=== PATIENT | male | born 1975 | race Caucasian/White ===

== ENCOUNTER 2016-10-03 09:25 | Observation (INO) | payer OTHER ==
[2016-10-03] MEDS ORDERED: Sodium Chloride 0.9% 1,000 ML IV SCH (09:45)
[2016-10-03] MEDS ORDERED: Ondansetron 4 MG/2 ML SDV IVPUSH ONE (09:50)
[2016-10-03] MEDS ORDERED: Pantoprazole 40 MG Vial IVPUSH ONE (09:50)
--- NOTE | 2016-10-03 09:54 | EDM.PDOC ---
ED HPI GENERAL MEDICAL PROBLEM - General Chief Complaint: Gastrointestinal Problem Stated Complaint: COUGHING BLOOD Time Seen by Provider: 10/03/16 09:31 - History of Present Illness INITIAL COMMENTS - FREE TEXT/NARRATIVE: HISTORY AND PHYSICAL: History of present illness: The patient is a 41-year-old male who presents with complaints of 2 days of having abdominal discomfort and having 10 loose stools a day which are "alvarado- colored" and then one day of cough with sputum that is blood-tinged and vomiting. Patient denies any fever runny nose or sore throat and has no chest pain or shortness of breath. Patient initially told triage he was concerned about the coughing but to me mentioned the diarrhea. Patient has no GI history and had an endoscopy and colonoscopy 2-3 years ago which diagnosed him with an ulcer which was treated. Patient also states he has had hemorrhoids in the past and is not sure if the bleeding is from that. Patient denies any rectal pain. He 's had no urinary symptoms and has no abdominal surgeries. Patient follows at [facility] and states he did not call in Tuesday with any of these symptoms. Patient says he's felt dizzy and lightheaded but has not passed out at home. While coming in from triage he was seated on the bed and nursing noted that he seemed to have a brief fainting episode on the bed without any trauma. Please note the patient did not get his influenza shot this year Review of systems: As per history of present illness and below otherwise all systems reviewed and negative. Past medical history: As per history of present illness and as reviewed below otherwise noncontributory. Surgical history: As per history of present illness and as reviewed below otherwise noncontributory. Social history: No reported history of drug or alcohol abuse. Family history: As per history of present illness and as reviewed below otherwise noncontributory. Physical exam: General: Well-developed well-nourished male who is nontoxic and speaking clearly and easily. Vital signs have been reviewed by me. HEENT: Atraumatic, normocephalic, pupils reactive, negative for conjunctival pallor or scleral icterus, mucous membranes moist, throat clear, neck supple, nontender, trachea midline. Lungs: Clear to auscultation, breath sounds equal bilaterally, chest nontender. There is no work of breathing or sensory muscle use Heart: S1S2, regular rhythm and slightly tachycardic rate, negative for clicks, rubs, or JVD. Abdomen: Soft, nondistended, diffuse tenderness throughout which is mild and there is no rebound or guarding, bowel sounds are hypoactive Negative for masses or hepatosplenomegaly. Negative for costovertebral tenderness. Pelvis: Stable nontender. Genitourinary: Deferred. Rectal: Normal tone without any masses or hemorrhoids appreciated. There was melanotic stool in the vault which wasn't visually grossly positive Extremities: Atraumatic, negative for cords or calf pain. Neurovascular unremarkable. Neuro: Awake, alert, oriented. Cranial nerves II through XII unremarkable. Cerebellum unremarkable. Motor and sensory unremarkable throughout. Exam nonfocal. Skin: Normal turgor no evidence of any rashes or lesions and color is grossly normal Diagnostics: EKG CBC CMP INR amylase lipase influenza swab chest x-ray orthostatic vitals Therapeutics: IV fluids Zofran Protonix It Is noted that after IV fluids x1 L the patient's heart rate has normalized. On orthostatics as her rate did go from 70-90 with position change but there was no drop in blood pressure. 1105: Case was discussed with Dr. Garcia who accepts the patient for admission observation. I've also discussed testing results with the patient in care plan for admission. The hospitalist requested I consult Dr. Hedrick; I will page him and advise him of the consult which he can see at his leisure. Impression: Near syncope with GI bleed Definitive disposition and diagnosis as appropriate pending reevaluation and review of above. abdomen Pain Score (Numeric/FACES): 8 - Related Data Allergies Allergy/AdvReac Type Severity Reaction Status Date / Time gabapentin Allergy memory loss Verified 10/03/16 09:39 Home Meds: Home Meds . [No Known Home Meds] 09/10/16 [History] Past Medical History HEENT History: Reports: Impaired vision Other HEENT History: wears glasses Cardiovascular History: Reports: None Respiratory History: Reports: None Gastrointestinal History: Reports: GERD Genitourinary History: Reports: None Musculoskeletal History: Reports: None Neurological History: Reports: Other (see below) Other Neuro History: Insomnia Psychiatric History: Reports: Anxiety Endocrine/Metabolic History: Reports: Obesity/BMI 30+ Hematologic History: Reports: None Immunologic History: Reports: None Oncologic (Cancer) History: Reports: None Dermatologic History: Reports: None - Infectious Disease History Infectious Disease History: Reports: None - Past Surgical History Head Surgeries/Procedures: Reports: None GI Surgical History: Reports: Bariatric procedure, Other (see below) Other GI Surgeries/Procedures: gastric bypass, "fat removed, not liposuction but cut out" Other Neurological Surgeries/Procedures: 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 Musculoskeletal Surgical History: Reports: Knee replacement, Other (see below) Other Musculoskeletal Surgeries/Procedures:: right knee surgery 2013 Social & Family History - Family History Family Medical History: Noncontributory - Tobacco Use Smoking Status *Q: Never Smoker Second Hand Smoke Exposure: No - Caffeine Use Caffeine Use: Reports: Soda - Alcohol Use Days Per Week of Alcohol Use: 0 Number of Drinks Per Day: 1 Total Drinks Per Week: 0 - Recreational Drug Use Recreational Drug Use: No Drug Use in Last 12 Months: No ED ROS GENERAL - Review of Systems Review Of Systems: ROS reveals no pertinent complaints other than HPI. ED EXAM, GENERAL - Physical Exam Exam: See Below (See dictation) Course - Vital Signs Last Recorded V/S: Last Vital Signs Temp 36.3 C 10/03/16 09:40 Pulse 78 10/03/16 10:29 Resp 16 10/03/16 10:29 BP 122/68 10/03/16 10:29 Pulse Ox 100 10/03/16 10:29 Orthostatic Blood Pressure [ 122/66 Standing] Orthostatic Blood Pressure [ 122/68 Sitting] Orthostatic Blood Pressure [ 120/71 Supine] - Orders/Labs/Meds Orders: Active Orders 24 hr Category Date Time Status Patient Status [ADT] Stat ADT 10/03/16 11:10 Ordered Cardiac Monitoring [RC] . DIRECTED Care 10/03/16 09:50 Active EKG Documentation Completion [RC] STAT Care 10/03/16 09:44 Active Hemoccult [Fecal Occult Blood Collection] [RC] Care 10/03/16 10:09 Active ASDIRECTED Notify Provider Consults [RC] ASDIRECTED Care 10/03/16 11:11 Ordered Orthostatic Vital Signs [RC] ASDIRECTED Care 10/03/16 09:50 Active Oxygen Therapy, ED [RC] ASDIRECTED Care 10/03/16 09:50 Active Pulse Oximetry [RC] ASDIRECTED Care 10/03/16 09:50 Active Consult to Physician [CONS] Stat Cons 10/03/16 11:11 Ordered Chest 2V [CR] Stat Exams 10/03/16 09:50 Taken Pantoprazole [Protonix IV] 80 mg Med 10/03/16 11:00 Active Sodium Chloride 0.9% [Normal Saline] 100 ml IV Q10H Sodium Chloride 0.9% [Normal Saline] 1,000 ml Med 10/03/16 09:45 Active IV ASDIRECTED Sodium Chloride 0.9% [Normal Saline] 1,000 ml Med 10/03/16 10:31 Active IV STAT Medication Orders Sodium Chloride (Normal Saline) 1,000 mls @ 999 mls/hr IV ASDIRECTED MYA Last Admin: 10/03/16 09:40 Dose: 999 mls/hr Sodium Chloride (Normal Saline) 1,000 mls @ 999 mls/hr IV STAT ONE Stop: 10/03/16 11:31 Last Admin: 10/03/16 11:04 Dose: 999 mls/hr Pantoprazole Sodium 80 mg/ (Sodium Chloride) 100 mls @ 10 mls/hr IV Q10H MYA Last Admin: 10/03/16 11:02 Dose: 10 mls/hr Labs: Laboratory Tests 10/03/16 10/03/16 10/03/16 Range/Units 09:30 09:30 09:30 WBC 13.11 H (4.0-11.0) K/uL RBC 4.34 L (4.50-5.90) M/uL Hgb 12.9 L (13.0-17.0) g/dL Hct 39.1 (38.0-50.0) % MCV 90.1 (80.0-98.0) fL MCH 29.7 (27.0-32.0) pg MCHC 33.0 (31.0-37.0) g/dL RDW Std Deviation 41.8 (28.0-62.0) fl RDW Coeff of Brendan 13 (11.0-15.0) % Plt Count 415 H (150-400) K/uL MPV 9.70 (7.40-12.00) fL Neut % (Auto) 73.5 (48.0-80.0) % Lymph % (Auto) 17.5 (16.0-40.0) % [place] % (Auto) 8.5 (0.0-15.0) % Eos % (Auto) 0.2 (0.0-7.0) % Baso % (Auto) 0.3 (0.0-1.5) % Neut # 9.6 H (1.4-5.7) K/uL Lymph # 2.3 (0.6-2.4) K/uL [place] # 1.1 H (0.0-0.8) K/uL Eos # 0.0 (0.0-0.7) K/uL Baso # 0.0 (0.0-0.1) K/uL INR 1.01 (0.86-1.11) Sodium 142 (136-146) mmol/L Potassium 4.1 (3.5-5.1) mmol/L Chloride 113 H (98-110) mmol/L Carbon Dioxide 19 L (21-31) mmol/L BUN 23 (6.0-23.0) mg/dL Creatinine 0.8 (0.6-1.5) mg/dL Est Cr Clr Drug Dosing TNP Estimated GFR (MDRD) > 60.0 ml/min Glucose 133 H (60-110) mg/dL Calcium 8.8 (8.8-10.8) mg/dL Total Bilirubin 0.5 (0.1-1.5) mg/dL AST 15 (5-40) IU/L ALT 15 (8-54) IU/L Alkaline Phosphatase 114 (40-150) Total Protein 6.7 (6.0-8.0) g/dL Albumin 4.0 (3.5-5.0) g/dL Globulin 2.7 (2.0-3.5) g/dL Albumin/Globulin Ratio 1.5 (1.3-2.8) Amylase (10-90) U/L Lipase (7-80) U/L 10/03/16 Range/Units 09:30 WBC (4.0-11.0) K/uL RBC (4.50-5.90) M/uL Hgb (13.0-17.0) g/dL Hct (38.0-50.0) % MCV (80.0-98.0) fL MCH (27.0-32.0) pg MCHC (31.0-37.0) g/dL RDW Std Deviation (28.0-62.0) fl RDW Coeff of Brendan (11.0-15.0) % Plt Count (150-400) K/uL MPV (7.40-12.00) fL Neut % (Auto) (48.0-80.0) % Lymph % (Auto) (16.0-40.0) % [place] % (Auto) (0.0-15.0) % Eos % (Auto) (0.0-7.0) % Baso % (Auto) (0.0-1.5) % Neut # (1.4-5.7) K/uL Lymph # (0.6-2.4) K/uL [place] # (0.0-0.8) K/uL Eos # (0.0-0.7) K/uL Baso # (0.0-0.1) K/uL INR (0.86-1.11) Sodium (136-146) mmol/L Potassium (3.5-5.1) mmol/L Chloride (98-110) mmol/L Carbon Dioxide (21-31) mmol/L BUN (6.0-23.0) mg/dL Creatinine (0.6-1.5) mg/dL Est Cr Clr Drug Dosing Estimated GFR (MDRD) ml/min Glucose (60-110) mg/dL Calcium (8.8-10.8) mg/dL Total Bilirubin (0.1-1.5) mg/dL AST (5-40) IU/L ALT (8-54) IU/L Alkaline Phosphatase (40-150) Total Protein (6.0-8.0) g/dL Albumin (3.5-5.0) g/dL Globulin (2.0-3.5) g/dL Albumin/Globulin Ratio (1.3-2.8) Amylase 33 (10-90) U/L Lipase 62 (7-80) U/L Meds: Medications Generic Name Dose Route Start Last Admin Trade Name Freq PRN Reason Stop Dose Admin Sodium Chloride 1,000 mls @ 999 mls/hr 10/03/16 09:45 10/03/16 09:40 Normal Saline IV 999 mls/hr ASDIRECTED MYA Administration Sodium Chloride 1,000 mls @ 999 mls/hr 10/03/16 10:31 10/03/16 11:04 Normal Saline IV 10/03/16 11:31 999 mls/hr STAT ONE Administration Pantoprazole Sodium 80 mg/ 100 mls @ 10 mls/hr 10/03/16 11:00 10/03/16 11:02 Sodium Chloride IV 10 mls/hr Q10H MYA Administration Discontinued Medications Generic Name Dose Route Start Last Admin Trade Name Freq PRN Reason Stop Dose Admin Pantoprazole Sodium 80 mg/ 100 mls @ 10 mls/hr 10/03/16 10:45 Sodium Chloride IV .Continuous MYA Ondansetron HCl 4 mg 10/03/16 09:50 10/03/16 10:19 Zofran IVPUSH 10/03/16 09:51 4 mg ONETIME ONE Administration Pantoprazole Sodium 80 mg 10/03/16 09:50 10/03/16 10:19 Protonix Iv IVPUSH 10/03/16 09:51 80 mg .BOLUS ONE Administration Departure - Departure Time of Disposition: 11:13 Disposition: Refer to Observation Condition: good Clinical Impression: Near syncope GI bleeding Qualifiers: GI bleed type/associated pathology: melena Qualified Code(s): K92.1 - Melena Forms: ED Department Discharge - My Orders Last 24 Hours: My Active Orders 10/03/16 09:44 EKG Documentation Completion [RC] STAT 10/03/16 09:45 Sodium Chloride 0.9% [Normal Saline] 1,000 ml IV ASDIRECTED 10/03/16 09:50 Cardiac Monitoring [RC] . DIRECTED Orthostatic Vital Signs [RC] ASDIRECTED Oxygen Therapy, ED [RC] ASDIRECTED Pulse Oximetry [RC] ASDIRECTED Chest 2V [CR] Stat 10/03/16 10:09 Hemoccult [Fecal Occult Blood Collection] [RC] ASDIRECTED 10/03/16 10:31 Sodium Chloride 0.9% [Normal Saline] 1,000 ml IV STAT 10/03/16 11:00 Pantoprazole [Protonix IV] 80 mg Sodium Chloride 0.9% [Normal Saline] 100 ml IV Q10H 10/03/16 11:10 Patient Status [ADT] Stat 10/03/16 11:11 Notify Provider Consults [RC] ASDIRECTED Consult to Physician [CONS] Stat - Assessment/Plan Last 24 Hours: My Active Orders 10/03/16 09:44 EKG Documentation Completion [RC] STAT 10/03/16 09:45 Sodium Chloride 0.9% [Normal Saline] 1,000 ml IV ASDIRECTED 10/03/16 09:50 Cardiac Monitoring [RC] . DIRECTED Orthostatic Vital Signs [RC] ASDIRECTED Oxygen Therapy, ED [RC] ASDIRECTED Pulse Oximetry [RC] ASDIRECTED Chest 2V [CR] Stat 10/03/16 10:09 Hemoccult [Fecal Occult Blood Collection] [RC] ASDIRECTED 10/03/16 10:31 Sodium Chloride 0.9% [Normal Saline] 1,000 ml IV STAT 10/03/16 11:00 Pantoprazole [Protonix IV] 80 mg Sodium Chloride 0.9% [Normal Saline] 100 ml IV Q10H 10/03/16 11:10 Patient Status [ADT] Stat 10/03/16 11:11 Notify Provider Consults [RC] ASDIRECTED Consult to Physician [CONS] Stat
[2016-10-03 10:03] LABS: CHLORIDE,CL 113 mmol/L (98-110); SODIUM,NA 142 mmol/L (136-146)
[2016-10-03] MEDS ORDERED: Sodium Chloride 0.9% 1,000 ML IV ONE (10:31)
[2016-10-03] MEDS ORDERED: Pantoprazole 80 MG in Sodium Chloride 0.9% 100 ML IV SCH (10:45)
[2016-10-03] MEDS: Pantoprazole 80 MG in Sodium Chloride 0.9% 100 ML IV SCH ×2 (11:02→23:35)
--- NOTE | 2016-10-03 11:36 | PCM.HP ---
H&P History of Present Illness - General Date of Service: 10/03/16 Admit Problem/Dx: Admission Diagnosis/Problem Admission Diagnosis/Problem Gastrointestinal hemorrhage Source of Information: Patient, Family, Old records, Provider, RN - History of Present Illness Initial Comments - Free Text/Narative: He was seen today in the ED for onset of melena today. He has had upper abdominal pain for about one week. He feels very light headed when he stands up. In the ED his heart rate increased from 70 to 90 / minute upon standing without a significant change in his blood pressure. abdomen Pain Score (Numeric/FACES): 8 - Related Data Allergies/Adverse Reactions: Allergies Allergy/AdvReac Type Severity Reaction Status Date / Time gabapentin Allergy memory loss Verified 10/03/16 09:39 Home Medications: Home Meds . [No Known Home Meds] 09/10/16 [History] Past Medical History HEENT History: Reports: Impaired vision Other HEENT History: wears glasses Cardiovascular History: Reports: None. Denies: CAD, Heart Failure, Hypertension , [place] Respiratory History: Reports: None. Denies: COPD Gastrointestinal History: Reports: GERD, PUD Genitourinary History: Reports: None. Denies: Chronic renal insuffiency, Diabetic nephropathy, Dialysis, peritoneal Musculoskeletal History: Reports: Arthritis Neurological History: Reports: Other (see below). Denies: Alzheimers disease, Brain injury, CVA Other Neuro History: Insomnia Psychiatric History: Reports: Anxiety Endocrine/Metabolic History: Reports: Obesity/BMI 30+. 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 Musculoskeletal Surgical History: Reports: Knee replacement, Other (see below) Other Musculoskeletal Surgeries/Procedures:: right knee surgery 2013 Social & Family History - Family History Family Medical History: Noncontributory - Tobacco Use Smoking Status *Q: Never Smoker Second Hand Smoke Exposure: No - Caffeine Use Caffeine Use: Reports: Soda - Alcohol Use Days Per Week of Alcohol Use: 0 Number of Drinks Per Day: 1 Total Drinks Per Week: 0 - Recreational Drug Use Recreational Drug Use: No Drug Use in Last 12 Months: No H&P Review of Systems - Review of Systems: Review Of Systems: See Below General: Denies: fever, chills HEENT: Denies: sore throat Pulmonary: Reports: cough, other (He has been "hacking" up small amounts of blood. It is uncertain if this is of GI origin). Denies: shortness of breath Cardiovascular: Denies: chest pain, palpitations, edema Gastrointestinal: Reports: Abdominal pain (epigastric pain as per HPI) Genitourinary: Denies: dysuria, hematuria Psychiatric: Denies: confusion, hallucinations Exam - Exam Exam: See Below - Vital Signs Vital Signs: Last Vital Signs Temp 97.3 F 10/03/16 09:40 Pulse 78 10/03/16 10:29 Resp 16 10/03/16 10:29 BP 122/68 10/03/16 10:29 Pulse Ox 100 10/03/16 10:29 Orthostatic Blood Pressure [ 122/66 Standing] Orthostatic Blood Pressure [ 122/68 Sitting] Orthostatic Blood Pressure [ 120/71 Supine] Weight: 115.666 kg - Exam General: alert, oriented, cooperative, severe distress HEENT: EOMI, Mucosa moist & pink Neck: supple, trachea midline Lungs: Clear to auscultation, Normal respiratory effort Cardiovascular: regular rate, regular rhythm. No: systolic murmur, diastolic murmur Abdomen: soft, tenderness (mild epigastric tenderness) Rectal (Males) Exam: Other (rectal exam as per Dr Sevilla) Extremities: No: edema Neurological: cranial nerves intact, normal speech Neuro Extensive - Mental Status: normal mood/affect Neuro Extensive - Motor, Sensory, Reflexes: CN II-XII intact. No: facial palsy (L), facial palsy (R), hemiplagia (L), hemiplagia (R) Psychiatric: alert, normal affect. No: agitated - Patient Data Lab Results last 24 hrs: Laboratory Results - last 24 hr 10/03/16 10/03/16 10/03/16 Range/Units 09:30 09:30 09:30 WBC 13.11 H (4.0-11.0) K/uL RBC 4.34 L (4.50-5.90) M/uL Hgb 12.9 L (13.0-17.0) g/dL Hct 39.1 (38.0-50.0) % MCV 90.1 (80.0-98.0) fL MCH 29.7 (27.0-32.0) pg MCHC 33.0 (31.0-37.0) g/dL RDW Std Deviation 41.8 (28.0-62.0) fl RDW Coeff of Brendan 13 (11.0-15.0) % Plt Count 415 H (150-400) K/uL MPV 9.70 (7.40-12.00) fL Neut % (Auto) 73.5 (48.0-80.0) % Lymph % (Auto) 17.5 (16.0-40.0) % [place] % (Auto) 8.5 (0.0-15.0) % Eos % (Auto) 0.2 (0.0-7.0) % Baso % (Auto) 0.3 (0.0-1.5) % Neut # 9.6 H (1.4-5.7) K/uL Lymph # 2.3 (0.6-2.4) K/uL [place] # 1.1 H (0.0-0.8) K/uL Eos # 0.0 (0.0-0.7) K/uL Baso # 0.0 (0.0-0.1) K/uL INR 1.01 (0.86-1.11) Sodium 142 (136-146) mmol/L Potassium 4.1 (3.5-5.1) mmol/L Chloride 113 H (98-110) mmol/L Carbon Dioxide 19 L (21-31) mmol/L BUN 23 (6.0-23.0) mg/dL Creatinine 0.8 (0.6-1.5) mg/dL Est Cr Clr Drug Dosing TNP Estimated GFR (MDRD) > 60.0 ml/min Glucose 133 H (60-110) mg/dL Calcium 8.8 (8.8-10.8) mg/dL Total Bilirubin 0.5 (0.1-1.5) mg/dL AST 15 (5-40) IU/L ALT 15 (8-54) IU/L Alkaline Phosphatase 114 (40-150) Total Protein 6.7 (6.0-8.0) g/dL Albumin 4.0 (3.5-5.0) g/dL Globulin 2.7 (2.0-3.5) g/dL Albumin/Globulin Ratio 1.5 (1.3-2.8) Amylase (10-90) U/L Lipase (7-80) U/L 10/03/16 Range/Units 09:30 WBC (4.0-11.0) K/uL RBC (4.50-5.90) M/uL Hgb (13.0-17.0) g/dL Hct (38.0-50.0) % MCV (80.0-98.0) fL MCH (27.0-32.0) pg MCHC (31.0-37.0) g/dL RDW Std Deviation (28.0-62.0) fl RDW Coeff of Brendan (11.0-15.0) % Plt Count (150-400) K/uL MPV (7.40-12.00) fL Neut % (Auto) (48.0-80.0) % Lymph % (Auto) (16.0-40.0) % [place] % (Auto) (0.0-15.0) % Eos % (Auto) (0.0-7.0) % Baso % (Auto) (0.0-1.5) % Neut # (1.4-5.7) K/uL Lymph # (0.6-2.4) K/uL [place] # (0.0-0.8) K/uL Eos # (0.0-0.7) K/uL Baso # (0.0-0.1) K/uL INR (0.86-1.11) Sodium (136-146) mmol/L Potassium (3.5-5.1) mmol/L Chloride (98-110) mmol/L Carbon Dioxide (21-31) mmol/L BUN (6.0-23.0) mg/dL Creatinine (0.6-1.5) mg/dL Est Cr Clr Drug Dosing Estimated GFR (MDRD) ml/min Glucose (60-110) mg/dL Calcium (8.8-10.8) mg/dL Total Bilirubin (0.1-1.5) mg/dL AST (5-40) IU/L ALT (8-54) IU/L Alkaline Phosphatase (40-150) Total Protein (6.0-8.0) g/dL Albumin (3.5-5.0) g/dL Globulin (2.0-3.5) g/dL Albumin/Globulin Ratio (1.3-2.8) Amylase 33 (10-90) U/L Lipase 62 (7-80) U/L Result Diagrams: 10/03/16 09:30 10/03/16 09:30 Gary Results last 24 hrs: Microbiology 10/03/16 10:21 Influenza Type A Antigen Screen - Final Nasal, Unspecified NEGATIVE INFLUENZA A VIRUS AG Influenza Type B Antigen Screen - Final NEGATIVE INFLUENZA B VIRUS AG *Q Meaningful Use (ADM) - VTE *Q VTE Criteria *Q: - Stroke *Q Stroke Criteria *Q: - AMI *Q AMI Criteria *Q: - Problem List (1) GI bleeding SNOMED Code(s): 74884699 ICD Code: K92.2 - GASTROINTESTINAL HEMORRHAGE, UNSPECIFIED Status: Acute Current Visit: Yes Qualifiers: GI bleed type/associated pathology: melena Qualified Code(s): K92.1 - Melena (2) Near syncope SNOMED Code(s): 417490844 ICD Code: R55 - SYNCOPE AND COLLAPSE Status: Acute Current Visit: Yes Problem List Initiated/Reviewed/Updated: Yes Orders Last 24hrs: Active Orders 24 hr Category Date Time Status Patient Status [ADT] Stat ADT 10/03/16 11:10 Active Cardiac Monitoring [RC] . DIRECTED Care 10/03/16 09:50 Active EKG Documentation Completion [RC] STAT Care 10/03/16 09:44 Active Hemoccult [Fecal Occult Blood Collection] [RC] Care 10/03/16 10:09 Active ASDIRECTED Notify Provider Consults [RC] ASDIRECTED Care 10/03/16 11:11 Active Orthostatic Vital Signs [RC] ASDIRECTED Care 10/03/16 09:50 Active Oxygen Therapy, ED [RC] ASDIRECTED Care 10/03/16 09:50 Active Pulse Oximetry [RC] ASDIRECTED Care 10/03/16 09:50 Active Consult to Physician [CONS] Stat Cons 10/03/16 11:11 Active Chest 2V [CR] Stat Exams 10/03/16 09:50 Taken Pantoprazole [Protonix IV] 80 mg Med 10/03/16 11:00 Active Sodium Chloride 0.9% [Normal Saline] 100 ml IV Q10H Sodium Chloride 0.9% [Normal Saline] 1,000 ml Med 10/03/16 09:45 Active IV ASDIRECTED Sodium Chloride 0.9% [Normal Saline] 1,000 ml Med 10/03/16 10:31 Active IV STAT Medication Orders Sodium Chloride (Normal Saline) 1,000 mls @ 999 mls/hr IV ASDIRECTED MYA Last Admin: 10/03/16 09:40 Dose: 999 mls/hr Sodium Chloride (Normal Saline) 1,000 mls @ 999 mls/hr IV STAT ONE Stop: 10/03/16 11:31 Last Admin: 10/03/16 11:04 Dose: 999 mls/hr Pantoprazole Sodium 80 mg/ (Sodium Chloride) 100 mls @ 10 mls/hr IV Q10H MYA Last Admin: 10/03/16 11:02 Dose: 10 mls/hr Assessment/Plan Comment:: admit to observation Dr. Hderick was consulted by ER physician Dr. Sevilla See orders protonix drip serial Hg carafate po P MD Radha
[2016-10-03] MEDS ORDERED: Acetaminophen 325 MG Tab PO PRN (11:37)
[2016-10-03] MEDS ORDERED: Ondansetron 4 MG/2 ML SDV IVPUSH PRN (11:37)
--- NOTE | 2016-10-03 14:51 | PCM.SN ---
- Free Text/Narrative Note: pt seen, chart reviewed; gib, hd stable; initiate gib protocol; txf to h/h above 10; avoid NSAID/anticoagulation, monitor uop; request previous endoscope reports; possible egd, either as inpatient or outpatient
[2016-10-03] MEDS: Acetaminophen/oxyCODONE 325-10 MG Tab PO PRN ×3 (14:55→23:21)
[2016-10-03] MEDS: Sucralfate Suspension 1 GM/10 ML Cup PO SCH ×3 (17:57→20:28)
[2016-10-03] MEDS: Sodium Chloride 0.9% 1,000 ML IV SCH (17:58)
--- NOTE | 2016-10-03 20:22 | CONS ---
DATE OF CONSULTATION: 10/03/2016 DATE OF : 1975 PRIMARY CARE PHYSICIAN: Denilson Cheung M.D. CONSULTING PHYSICIANS: Dr. Garcia and Dr. Wendy Sevilla from the emergency room. CONCERNING QUESTION: Black tarry stool. HISTORY OF PRESENT ILLNESS: The patient is a 41-year-old gentleman, large build and computer network engineer, complained over a couple of week history of abdominal pain and spitting of blood. He did not say vomiting, he said spitting up and he also mentioned it has been going on for about a year on and off. He had endoscopy done in the past, not here somewhere else. Got colonoscopy done, did not find anything and got EGD done and found gastric ulcer per the patient 2 years ago and currently, the patient is complaining of the spitting up blood and lightheaded and abdominal pain, epigastric in nature and that has been going on for a while. PAST MEDICAL HISTORY: Significant for no diabetes, [place], CVA, or hypertension. PAST SURGICAL HISTORY: Gastric bypass, multiple orthopedic procedures, and right knee total knee arthroplasty. PHYSICAL EXAMINATION: GENERAL: A very pleasant, nice gentleman, in no acute distress. HEENT: Normocephalic, atraumatic. Sclerae anicteric. LUNGS: Clear to auscultation. HEART: Regular rate and rhythm. ABDOMEN: Soft, nondistended. No pulsating, tender midline abdominal structure. Absolutely no pain whatsoever in the tummy and all 4 quadrants. Well-healed transverse abdominal scar. LABORATORY DATA: Laboratory value upon consultation; H and H is 13 and 39. INR was 1.01. IMPRESSION: Spitting up blood, lightheaded, and black tarry stool, possible upper gastrointestinal bleeding; however, the patient is being on and off going on for a while and the patient is currently hemodynamically stable and the patient denied use of nonsteroidal anti-inflammatory drug, aspirin, or blood thinning agent. We will discuss with primary care. The patient can have an endoscopy study on Tuesday, 2 days from now, or as outpatient EGD and either way will be just fine. Hold off any Lovenox or anticoagulation initiated GI bleeding protocol. Keep H and H above 10 and monitor urine output. As always, thank you for the kind referral and involving me in the care of this nice gentleman. AGNES / ARMIDA /[phone]
[2016-10-03] MEDS: Temazepam 15 MG Cap PO PRN (22:11)
[2016-10-04] MEDS: Pantoprazole 80 MG in Sodium Chloride 0.9% 100 ML IV SCH ×3 (00:07→21:06)
[2016-10-04] MEDS: Sodium Chloride 0.9% 1,000 ML IV SCH ×2 (02:03→10:11)
[2016-10-04] MEDS: Acetaminophen/oxyCODONE 325-10 MG Tab PO PRN ×5 (03:41→22:44)
[2016-10-04 05:27] LABS: CHLORIDE,CL 114 mmol/L (98-110); SODIUM,NA 144 mmol/L (136-146)
[2016-10-04] MEDS: Sucralfate Suspension 1 GM/10 ML Cup PO SCH ×4 (06:38→21:04)
--- NOTE | 2016-10-04 09:24 | PCM.SURGPN ---
- General Info Date of Service: 10/04/16 - Review of Systems General: Reports: no symptoms (jensen po full liquid; 1000/24 hr uop; no more black tarry stool) - Patient Data Vitals - most recent: Last Vital Signs Temp 98.2 F 10/04/16 08:00 Pulse 68 10/04/16 08:00 Resp 18 10/04/16 08:00 BP 115/68 10/04/16 08:00 Pulse Ox 100 10/04/16 08:00 Weight - most recent: 264 lb I&O - last 24 hours: Intake & Output 10/03/16 10/04/16 10/04/16 22:59 06:59 14:59 Intake Total 100 2050 Output Total 675 280 Balance -575 1770 Lab Results last 24 hrs: Laboratory Results - last 24 hr 10/03/16 10/03/16 10/03/16 Range/Units 11:58 17:34 23:43 WBC (4.0-11.0) K/uL RBC (4.50-5.90) M/uL Hgb 11.3 L 11.2 L 9.7 L (13.0-17.0) g/dL Hct (38.0-50.0) % MCV (80.0-98.0) fL MCH (27.0-32.0) pg MCHC (31.0-37.0) g/dL RDW Std Deviation (28.0-62.0) fl RDW Coeff of Brendan (11.0-15.0) % Plt Count (150-400) K/uL MPV (7.40-12.00) fL Neut % (Auto) (48.0-80.0) % Lymph % (Auto) (16.0-40.0) % [place]range % (Auto) (0.0-15.0) % Eos % (Auto) (0.0-7.0) % Baso % (Auto) (0.0-1.5) % Neut # (1.4-5.7) K/uL Lymph # (0.6-2.4) K/uL [place] # (0.0-0.8) K/uL Eos # (0.0-0.7) K/uL Baso # (0.0-0.1) K/uL Sodium (136-146) mmol/L Potassium (3.5-5.1) mmol/L Chloride (98-110) mmol/L Carbon Dioxide (21-31) mmol/L BUN (6.0-23.0) mg/dL Creatinine (0.6-1.5) mg/dL Est Cr Clr Drug Dosing mL/min Estimated GFR (MDRD) ml/min Glucose (60-110) mg/dL Calcium (8.8-10.8) mg/dL Magnesium (1.5-2.3) mEq/L 10/04/16 10/04/16 Range/Units 04:30 04:30 WBC 7.64 (4.0-11.0) K/uL RBC 3.11 L (4.50-5.90) M/uL Hgb 9.3 L (13.0-17.0) g/dL Hct 28.9 L (38.0-50.0) % MCV 92.9 (80.0-98.0) fL MCH 29.9 (27.0-32.0) pg MCHC 32.2 (31.0-37.0) g/dL RDW Std Deviation 42.4 (28.0-62.0) fl RDW Coeff of Brendan 13 (11.0-15.0) % Plt Count 277 (150-400) K/uL MPV 9.70 (7.40-12.00) fL Neut % (Auto) 48.3 (48.0-80.0) % Lymph % (Auto) 40.2 H (16.0-40.0) % [place] % (Auto) 10.2 (0.0-15.0) % Eos % (Auto) 0.9 (0.0-7.0) % Baso % (Auto) 0.4 (0.0-1.5) % Neut # 3.7 (1.4-5.7) K/uL Lymph # 3.1 H (0.6-2.4) K/uL [place]range # 0.8 (0.0-0.8) K/uL Eos # 0.1 (0.0-0.7) K/uL Baso # 0.0 (0.0-0.1) K/uL Sodium 144 (136-146) mmol/L Potassium 4.0 (3.5-5.1) mmol/L Chloride 114 H (98-110) mmol/L Carbon Dioxide 25 (21-31) mmol/L BUN 15 (6.0-23.0) mg/dL Creatinine 0.8 (0.6-1.5) mg/dL Est Cr Clr Drug Dosing 142.30 mL/min Estimated GFR (MDRD) > 60.0 ml/min Glucose 86 (60-110) mg/dL Calcium 8.0 L (8.8-10.8) mg/dL Magnesium 1.7 (1.5-2.3) mEq/L Med Orders - Current: Current Medications Acetaminophen (Tylenol) 650 mg PO Q4H PRN PRN Reason: Pain (Mild 1-3)/fever Sodium Chloride (Normal Saline) 1,000 mls @ 999 mls/hr IV ASDIRECTED [facility] Last Admin: 10/03/16 09:40 Dose: 999 mls/hr Sodium Chloride (Normal Saline) 1,000 mls @ 125 mls/hr IV ASDIRECTED [facility] Last Admin: 10/04/16 02:03 Dose: 125 mls/hr Pantoprazole Sodium 80 mg/ (Sodium Chloride) 100 mls @ 10 mls/hr IV Q10H [facility] Last Admin: 10/04/16 00:07 Dose: 10 mls/hr Ondansetron HCl (Zofran) 4 mg IVPUSH Q4H PRN PRN Reason: Nausea Oxycodone/Acetaminophen (Percocet 325-10 Mg) 1 tab PO Q4H PRN PRN Reason: Pain Last Admin: 10/04/16 08:39 Dose: 1 tab Sucralfate (Carafate) 1 gm PO ACBED [facility] Last Admin: 10/04/16 06:38 Dose: 1 gm Temazepam (Restoril) 15 mg PO BEDTIME PRN PRN Reason: Sleep Last Admin: 10/03/16 22:11 Dose: 15 mg Discontinued Medications Pantoprazole Sodium 80 mg/ (Sodium Chloride) 100 mls @ 10 mls/hr IV .Continuous [facility] Sodium Chloride (Normal Saline) 1,000 mls @ 999 mls/hr IV STAT ONE Stop: 10/03/16 11:31 Last Admin: 10/03/16 11:04 Dose: 999 mls/hr Pantoprazole Sodium 80 mg/ (Sodium Chloride) 100 mls @ 10 mls/hr IV Q10H [facility] Last Admin: 10/03/16 23:35 Dose: Not Given Ondansetron HCl (Zofran) 4 mg IVPUSH ONETIME ONE Stop: 10/03/16 09:51 Last Admin: 10/03/16 10:19 Dose: 4 mg Pantoprazole Sodium (Protonix Iv) 80 mg IVPUSH .BOLUS ONE Stop: 10/03/16 09:51 Last Admin: 10/03/16 10:19 Dose: 80 mg - Exam Abdomen: soft, no tenderness - Problem List Review Problem List Initiated/Reviewed/Updated: Yes - My Orders Last 24 Hours: Active Orders 24 hr Category Date Time Status Telemetry Monitoring [Cardiac Monitoring] [RC] . Care 10/03/16 11:38 Active DIRECTED Acetaminophen/oxyCODONE [Percocet 325-10 MG] Med 10/03/16 14:41 Active 1 tab PO Q4H PRN Pantoprazole [Protonix IV] 80 mg Med 10/03/16 23:59 Active Sodium Chloride 0.9% [Normal Saline] 100 ml IV Q10H Medication Orders Acetaminophen (Tylenol) 650 mg PO Q4H PRN PRN Reason: Pain (Mild 1-3)/fever Sodium Chloride (Normal Saline) 1,000 mls @ 999 mls/hr IV ASDIRECTED [facility] Last Admin: 10/03/16 09:40 Dose: 999 mls/hr Sodium Chloride (Normal Saline) 1,000 mls @ 125 mls/hr IV ASDIRECTED [facility] Last Admin: 10/04/16 02:03 Dose: 125 mls/hr Infusion: 10/04/16 01:58 Dose: 125 mls/hr Admin: 10/03/16 17:58 Dose: 125 mls/hr Pantoprazole Sodium 80 mg/ (Sodium Chloride) 100 mls @ 10 mls/hr IV Q10H [facility] Last Admin: 10/04/16 00:07 Dose: 10 mls/hr Ondansetron HCl (Zofran) 4 mg IVPUSH Q4H PRN PRN Reason: Nausea Oxycodone/Acetaminophen (Percocet 325-10 Mg) 1 tab PO Q4H PRN PRN Reason: Pain Last Admin: 10/04/16 08:39 Dose: 1 tab Admin: 10/04/16 03:41 Dose: 1 tab Admin: 10/03/16 23:21 Dose: 1 tab Admin: 10/03/16 19:14 Dose: 1 tab Admin: 10/03/16 14:55 Dose: 1 tab Sucralfate (Carafate) 1 gm PO ACBED [facility] Last Admin: 10/04/16 06:38 Dose: 1 gm Admin: 10/03/16 20:28 Dose: 1 gm Admin: 10/03/16 18:42 Dose: Admin: 10/03/16 17:57 Dose: 1 gm Temazepam (Restoril) 15 mg PO BEDTIME PRN PRN Reason: Sleep Last Admin: 10/03/16 22:11 Dose: 15 mg - Assessment Assessment (Free Text/Narrative):: HD #2 from black tarry stool; reportedly resolved; non tender; h/h in downward trend; will recheck one more time; if stable, no signs or symptoms of active bleeding; would see in office for outpation egd; please request previous colonoscopy report - Plan Plan (Free Text/Narrative):: HD #2 from black tarry stool; reportedly resolved; non tender; h/h in downward trend; will recheck one more time; if stable, no signs or symptoms of active bleeding; would see in office for outpation egd; please request previous colonoscopy report
--- NOTE | 2016-10-04 09:37 | PCM.PN ---
- General Info Date of Service: 10/04/16 Subjective Update: Does not have black tarry stools. on liquid diet Functional Status: Reports: pain controlled, tolerating diet - Review of Systems General: Reports: no symptoms HEENT: Reports: no symptoms Pulmonary: Reports: no symptoms Cardiovascular: Reports: no symptoms Gastrointestinal: Reports: No symptoms Genitourinary: Reports: no symptoms Musculoskeletal: Reports: no symptoms Skin: Reports: no symptoms Neurological: Reports: no symptoms Psychiatric: Reports: no symptoms - Patient Data Vitals - most recent: Last Vital Signs Temp 98.2 F 10/04/16 08:00 Pulse 68 10/04/16 08:00 Resp 18 10/04/16 08:00 BP 115/68 10/04/16 08:00 Pulse Ox 100 10/04/16 08:00 Weight - most recent: 119.748 kg I&O - last 24 hours: Intake & Output 10/03/16 10/04/16 10/04/16 22:59 06:59 14:59 Intake Total 100 2050 Output Total 675 280 Balance -575 1770 Lab Results last 24 hrs: Laboratory Results - last 24 hr 10/03/16 10/03/16 10/03/16 Range/Units 11:58 17:34 23:43 WBC (4.0-11.0) K/uL RBC (4.50-5.90) M/uL Hgb 11.3 L 11.2 L 9.7 L (13.0-17.0) g/dL Hct (38.0-50.0) % MCV (80.0-98.0) fL MCH (27.0-32.0) pg MCHC (31.0-37.0) g/dL RDW Std Deviation (28.0-62.0) fl RDW Coeff of Brendan (11.0-15.0) % Plt Count (150-400) K/uL MPV (7.40-12.00) fL Neut % (Auto) (48.0-80.0) % Lymph % (Auto) (16.0-40.0) % Whitfield % (Auto) (0.0-15.0) % Eos % (Auto) (0.0-7.0) % Baso % (Auto) (0.0-1.5) % Neut # (1.4-5.7) K/uL Lymph # (0.6-2.4) K/uL Whitfield # (0.0-0.8) K/uL Eos # (0.0-0.7) K/uL Baso # (0.0-0.1) K/uL Sodium (136-146) mmol/L Potassium (3.5-5.1) mmol/L Chloride (98-110) mmol/L Carbon Dioxide (21-31) mmol/L BUN (6.0-23.0) mg/dL Creatinine (0.6-1.5) mg/dL Est Cr Clr Drug Dosing mL/min Estimated GFR (MDRD) ml/min Glucose (60-110) mg/dL Calcium (8.8-10.8) mg/dL Magnesium (1.5-2.3) mEq/L 10/04/16 10/04/16 Range/Units 04:30 04:30 WBC 7.64 (4.0-11.0) K/uL RBC 3.11 L (4.50-5.90) M/uL Hgb 9.3 L (13.0-17.0) g/dL Hct 28.9 L (38.0-50.0) % MCV 92.9 (80.0-98.0) fL MCH 29.9 (27.0-32.0) pg MCHC 32.2 (31.0-37.0) g/dL RDW Std Deviation 42.4 (28.0-62.0) fl RDW Coeff of Brendan 13 (11.0-15.0) % Plt Count 277 (150-400) K/uL MPV 9.70 (7.40-12.00) fL Neut % (Auto) 48.3 (48.0-80.0) % Lymph % (Auto) 40.2 H (16.0-40.0) % Whitfield % (Auto) 10.2 (0.0-15.0) % Eos % (Auto) 0.9 (0.0-7.0) % Baso % (Auto) 0.4 (0.0-1.5) % Neut # 3.7 (1.4-5.7) K/uL Lymph # 3.1 H (0.6-2.4) K/uL Whitfield # 0.8 (0.0-0.8) K/uL Eos # 0.1 (0.0-0.7) K/uL Baso # 0.0 (0.0-0.1) K/uL Sodium 144 (136-146) mmol/L Potassium 4.0 (3.5-5.1) mmol/L Chloride 114 H (98-110) mmol/L Carbon Dioxide 25 (21-31) mmol/L BUN 15 (6.0-23.0) mg/dL Creatinine 0.8 (0.6-1.5) mg/dL Est Cr Clr Drug Dosing 142.30 mL/min Estimated GFR (MDRD) > 60.0 ml/min Glucose 86 (60-110) mg/dL Calcium 8.0 L (8.8-10.8) mg/dL Magnesium 1.7 (1.5-2.3) mEq/L Med Orders - Current: Current Medications Acetaminophen (Tylenol) 650 mg PO Q4H PRN PRN Reason: Pain (Mild 1-3)/fever Sodium Chloride (Normal Saline) 1,000 mls @ 999 mls/hr IV ASDIRECTED [facility] Last Admin: 10/03/16 09:40 Dose: 999 mls/hr Sodium Chloride (Normal Saline) 1,000 mls @ 125 mls/hr IV ASDIRECTED [facility] Last Admin: 10/04/16 02:03 Dose: 125 mls/hr Pantoprazole Sodium 80 mg/ (Sodium Chloride) 100 mls @ 10 mls/hr IV Q10H [facility] Last Admin: 10/04/16 00:07 Dose: 10 mls/hr Ondansetron HCl (Zofran) 4 mg IVPUSH Q4H PRN PRN Reason: Nausea Oxycodone/Acetaminophen (Percocet 325-10 Mg) 1 tab PO Q4H PRN PRN Reason: Pain Last Admin: 10/04/16 08:39 Dose: 1 tab Sucralfate (Carafate) 1 gm PO ACBED [facility] Last Admin: 10/04/16 06:38 Dose: 1 gm Temazepam (Restoril) 15 mg PO BEDTIME PRN PRN Reason: Sleep Last Admin: 10/03/16 22:11 Dose: 15 mg Discontinued Medications Pantoprazole Sodium 80 mg/ (Sodium Chloride) 100 mls @ 10 mls/hr IV .Continuous [facility] Sodium Chloride (Normal Saline) 1,000 mls @ 999 mls/hr IV STAT ONE Stop: 10/03/16 11:31 Last Admin: 10/03/16 11:04 Dose: 999 mls/hr Pantoprazole Sodium 80 mg/ (Sodium Chloride) 100 mls @ 10 mls/hr IV Q10H [facility] Last Admin: 10/03/16 23:35 Dose: Not Given Ondansetron HCl (Zofran) 4 mg IVPUSH ONETIME ONE Stop: 10/03/16 09:51 Last Admin: 10/03/16 10:19 Dose: 4 mg Pantoprazole Sodium (Protonix Iv) 80 mg IVPUSH .BOLUS ONE Stop: 10/03/16 09:51 Last Admin: 10/03/16 10:19 Dose: 80 mg - Exam General: alert, oriented HEENT: Pupils equal, EOMI Neck: supple Lungs: Clear to auscultation Cardiovascular: regular rate, regular rhythm Abdomen: bowel sounds present, soft, no tenderness Back Exam: normal inspection Extremities: no edema - Problem List & Annotations (1) Anemia SNOMED Code(s): 629621474 Code(s): D64.9 - ANEMIA, UNSPECIFIED Status: Acute Current Visit: Yes - Problem List Review Problem List Initiated/Reviewed/Updated: Yes - Plan Plan:: HB 9.3: Transfuse [address] MONSIVAIS recomended outpatient EGD and to keep HB above 10 on liquid diet. protonix drip serial Hg carafate po
--- NOTE | 2016-10-04 16:50 | CR ---
EXAM DATE: 10/03/16 PATIENT'S AGE: 41 Patient: BRIAN ANNA Facility: [place], [place] Site . Site : 1975 Study: XRay Chest [id number]/26/2017 10:18:08 AM Ordering Physician: Roel Nguyen Final Report: INDICATION: PAIN,SOB, PT STATES COUGHING UP BLOOD. INDICATION: Patient with shortness of breath, hemoptysis. TECHNIQUE: Two-view. FINDINGS: Heart size is within normal limits. The lungs are free of significant infiltrate. No suspicious masses are seen. IMPRESSION: No significant infiltrate is identified. Dictated by Asher Braun MD @ 10/03/2016 10:27:26 AM Dictated by: Asher Braun MD @ 10/03/2016 10:27:37 (Electronic Signature) Report Signed by Proxy and Original Signed Document filed in the Medical Record. [email or web address]
[2016-10-04] MEDS: Temazepam 15 MG Cap PO PRN (22:44)
[2016-10-05] MEDS: Sodium Chloride 0.9% 1,000 ML IV SCH (00:31)
[2016-10-05] MEDS: Acetaminophen/oxyCODONE 325-10 MG Tab PO PRN ×2 (03:48→08:17)
[2016-10-05 06:02] LABS: CHLORIDE,CL 112 mmol/L (98-110); SODIUM,NA 143 mmol/L (136-146)
[2016-10-05] MEDS: Sucralfate Suspension 1 GM/10 ML Cup PO SCH (06:46)
[2016-10-05] MEDS: Pantoprazole 80 MG in Sodium Chloride 0.9% 100 ML IV SCH (07:18)
--- NOTE | 2016-10-05 08:35 | PCM.SURGPN ---
- General Info Date of Service: 10/05/16 - Review of Systems General: Reports: no symptoms Gastrointestinal: Reports: No symptoms (tolerate po diet; no bm today yet) - Patient Data Vitals - most recent: Last Vital Signs Temp 98.9 F 10/05/16 04:00 Pulse 64 10/05/16 04:00 Resp 12 10/05/16 04:00 BP 120/65 10/05/16 04:00 Pulse Ox 96 10/05/16 04:00 Weight - most recent: 264 lb I&O - last 24 hours: Intake & Output 10/04/16 10/05/16 10/05/16 22:59 06:59 14:59 Intake Total 1379 964 100 Output Total 700 1350 Balance 679 -386 100 Lab Results last 24 hrs: Laboratory Results - last 24 hr 10/04/16 10/04/16 10/05/16 Range/Units 10:20 23:49 04:25 WBC 8.49 7.90 (4.0-11.0) K/uL RBC 3.46 L 3.70 L (4.50-5.90) M/uL Hgb 10.3 L 10.9 L (13.0-17.0) g/dL Hct 30.8 L 33.3 L (38.0-50.0) % MCV 89.0 90.0 (80.0-98.0) fL MCH 29.8 29.5 (27.0-32.0) pg MCHC 33.4 32.7 (31.0-37.0) g/dL RDW Std Deviation 43.8 45.1 (28.0-62.0) fl RDW Coeff of Brendan 14 14 (11.0-15.0) % Plt Count 236 262 (150-400) K/uL MPV 9.30 9.60 (7.40-12.00) fL Neut % (Auto) 57.1 54.2 (48.0-80.0) % Lymph % (Auto) 31.9 33.9 (16.0-40.0) % Starke % (Auto) 9.5 10.0 (0.0-15.0) % Eos % (Auto) 1.3 1.4 (0.0-7.0) % Baso % (Auto) 0.2 0.5 (0.0-1.5) % Neut # 4.8 4.3 (1.4-5.7) K/uL Lymph # 2.7 H 2.7 H (0.6-2.4) K/uL Starke # 0.8 0.8 (0.0-0.8) K/uL Eos # 0.1 0.1 (0.0-0.7) K/uL Baso # 0.0 0.0 (0.0-0.1) K/uL Nucleated RBC % 0.0 0.0 /100WBC Nucleated RBCs # 0 0 K/uL Sodium (136-146) mmol/L Potassium (3.5-5.1) mmol/L Chloride (98-110) mmol/L Carbon Dioxide (21-31) mmol/L BUN (6.0-23.0) mg/dL Creatinine (0.6-1.5) mg/dL Est Cr Clr Drug Dosing mL/min Estimated GFR (MDRD) ml/min Glucose (60-110) mg/dL Calcium (8.8-10.8) mg/dL Blood Type B POSITIVE Antibody Screen NEGATIVE Crossmatch See Detail 10/05/16 Range/Units 04:25 WBC (4.0-11.0) K/uL RBC (4.50-5.90) M/uL Hgb (13.0-17.0) g/dL Hct (38.0-50.0) % MCV (80.0-98.0) fL MCH (27.0-32.0) pg MCHC (31.0-37.0) g/dL RDW Std Deviation (28.0-62.0) fl RDW Coeff of Brendan (11.0-15.0) % Plt Count (150-400) K/uL MPV (7.40-12.00) fL Neut % (Auto) (48.0-80.0) % Lymph % (Auto) (16.0-40.0) % Starke % (Auto) (0.0-15.0) % Eos % (Auto) (0.0-7.0) % Baso % (Auto) (0.0-1.5) % Neut # (1.4-5.7) K/uL Lymph # (0.6-2.4) K/uL Starke # (0.0-0.8) K/uL Eos # (0.0-0.7) K/uL Baso # (0.0-0.1) K/uL Nucleated RBC % /100WBC Nucleated RBCs # K/uL Sodium 143 (136-146) mmol/L Potassium 4.1 (3.5-5.1) mmol/L Chloride 112 H (98-110) mmol/L Carbon Dioxide 22 (21-31) mmol/L BUN 9 (6.0-23.0) mg/dL Creatinine 0.8 (0.6-1.5) mg/dL Est Cr Clr Drug Dosing 142.30 mL/min Estimated GFR (MDRD) > 60.0 ml/min Glucose 72 (60-110) mg/dL Calcium 8.3 L (8.8-10.8) mg/dL Blood Type Antibody Screen Crossmatch Med Orders - Current: Current Medications Acetaminophen (Tylenol) 650 mg PO Q4H PRN PRN Reason: Pain (Mild 1-3)/fever Sodium Chloride (Normal Saline) 1,000 mls @ 999 mls/hr IV ASDIRECTED [facility] Last Admin: 10/03/16 09:40 Dose: 999 mls/hr Sodium Chloride (Normal Saline) 1,000 mls @ 125 mls/hr IV ASDIRECTED [facility] Last Admin: 10/05/16 00:31 Dose: 125 mls/hr Pantoprazole Sodium 80 mg/ (Sodium Chloride) 100 mls @ 10 mls/hr IV Q10H [facility] Last Admin: 10/05/16 07:18 Dose: 10 mls/hr Ondansetron HCl (Zofran) 4 mg IVPUSH Q4H PRN PRN Reason: Nausea Last Admin: 10/04/16 13:52 Dose: 4 mg Oxycodone/Acetaminophen (Percocet 325-10 Mg) 1 tab PO Q4H PRN PRN Reason: Pain Last Admin: 10/05/16 08:17 Dose: 1 tab Sucralfate (Carafate) 1 gm PO ACBED [facility] Last Admin: 10/05/16 06:46 Dose: 1 gm Temazepam (Restoril) 15 mg PO BEDTIME PRN PRN Reason: Sleep Last Admin: 10/04/16 22:44 Dose: 15 mg Discontinued Medications Pantoprazole Sodium 80 mg/ (Sodium Chloride) 100 mls @ 10 mls/hr IV .Continuous [facility] Sodium Chloride (Normal Saline) 1,000 mls @ 999 mls/hr IV STAT ONE Stop: 10/03/16 11:31 Last Admin: 10/03/16 11:04 Dose: 999 mls/hr Pantoprazole Sodium 80 mg/ (Sodium Chloride) 100 mls @ 10 mls/hr IV Q10H [facility] Last Admin: 10/03/16 23:35 Dose: Not Given Ondansetron HCl (Zofran) 4 mg IVPUSH ONETIME ONE Stop: 10/03/16 09:51 Last Admin: 10/03/16 10:19 Dose: 4 mg Pantoprazole Sodium (Protonix Iv) 80 mg IVPUSH .BOLUS ONE Stop: 10/03/16 09:51 Last Admin: 10/03/16 10:19 Dose: 80 mg - Exam Abdomen: soft, no distension (lab 9.3 > 10.3 > 10.9, no signs of active bleeding ) - Problem List Review Problem List Initiated/Reviewed/Updated: Yes - My Orders Last 24 Hours: Active Orders 24 hr Category Date Time Status RED BLOOD CELLS LP [BBK] Stat Lab 10/04/16 10:20 Results TYPE AND SCREEN [BBK] Routine Lab 10/04/16 10:20 Results Medication Orders Acetaminophen (Tylenol) 650 mg PO Q4H PRN PRN Reason: Pain (Mild 1-3)/fever Sodium Chloride (Normal Saline) 1,000 mls @ 999 mls/hr IV ASDIRECTED [facility] Last Admin: 10/03/16 09:40 Dose: 999 mls/hr Sodium Chloride (Normal Saline) 1,000 mls @ 125 mls/hr IV ASDIRECTED [facility] Last Admin: 10/05/16 00:31 Dose: 125 mls/hr Infusion: 10/04/16 18:11 Dose: 125 mls/hr Admin: 10/04/16 10:11 Dose: 125 mls/hr Infusion: 10/04/16 10:03 Dose: 125 mls/hr Admin: 10/04/16 02:03 Dose: 125 mls/hr Infusion: 10/04/16 01:58 Dose: 125 mls/hr Admin: 10/03/16 17:58 Dose: 125 mls/hr Pantoprazole Sodium 80 mg/ (Sodium Chloride) 100 mls @ 10 mls/hr IV Q10H [facility] Last Admin: 10/05/16 07:18 Dose: 10 mls/hr Infusion: 10/05/16 07:06 Dose: 10 mls/hr Admin: 10/04/16 21:06 Dose: 10 mls/hr Infusion: 10/04/16 21:05 Dose: 10 mls/hr Admin: 10/04/16 11:32 Dose: 10 mls/hr Infusion: 10/04/16 10:07 Dose: 10 mls/hr Admin: 10/04/16 00:07 Dose: 10 mls/hr Ondansetron HCl (Zofran) 4 mg IVPUSH Q4H PRN PRN Reason: Nausea Last Admin: 10/04/16 13:52 Dose: 4 mg Oxycodone/Acetaminophen (Percocet 325-10 Mg) 1 tab PO Q4H PRN PRN Reason: Pain Last Admin: 10/05/16 08:17 Dose: 1 tab Admin: 10/05/16 03:48 Dose: 1 tab Admin: 10/04/16 22:44 Dose: 1 tab Admin: 10/04/16 18:45 Dose: 1 tab Admin: 10/04/16 13:02 Dose: 1 tab Admin: 10/04/16 08:39 Dose: 1 tab Admin: 10/04/16 03:41 Dose: 1 tab Admin: 10/03/16 23:21 Dose: 1 tab Admin: 10/03/16 19:14 Dose: 1 tab Admin: 10/03/16 14:55 Dose: 1 tab Sucralfate (Carafate) 1 gm PO ACBED MYA Last Admin: 10/05/16 06:46 Dose: 1 gm Admin: 10/04/16 21:04 Dose: 1 gm Admin: 10/04/16 16:40 Dose: 1 gm Admin: 10/04/16 10:47 Dose: 1 gm Admin: 10/04/16 06:38 Dose: 1 gm Admin: 10/03/16 20:28 Dose: 1 gm Admin: 10/03/16 18:42 Dose: Admin: 10/03/16 17:57 Dose: 1 gm Temazepam (Restoril) 15 mg PO BEDTIME PRN PRN Reason: Sleep Last Admin: 10/04/16 22:44 Dose: 15 mg Admin: 10/03/16 22:11 Dose: 15 mg - Assessment Assessment (Free Text/Narrative):: received 2 RBC h/h 9.3 > 10.3 > 10.9; abd pain resolved; pt dont have BM today; h/h stable, ok to dc home, fu w me in office 1 wk for outpatient egd; avoid ASA or NSAID till endoscope - Plan Plan (Free Text/Narrative):: received 2 RBC h/h 9.3 > 10.3 > 10.9; abd pain resolved; pt dont have BM today; h/h stable, ok to dc home, fu w me in office 1 wk for outpatient egd; avoid ASA or NSAID till endoscope
[2016-10-05 08:36] VITALS: BP 125/65
== END 2016-10-05 11:45 | disposition home or self-care (01) ==
LOC: MW.ED 09:25 → MW.MS 11:46
PROVIDERS: ADMIT Family Medicine; ATTEND Family Medicine
DX: K92.2 Gastrointestinal hemorrhage, unspecified (principal); D64.9 Anemia, unspecified; R55 Syncope and collapse; K21.9 Gastro-esophageal reflux disease without esophagitis; E66.9 Obesity, unspecified; F41.9 Anxiety disorder, unspecified; Z98.84 Bariatric surgery status; Z98.890 Other specified postprocedural states; Z68.30 Body mass index [BMI] 30.0-30.9, adult; Z88.8 Allergy status to other drugs, medicaments and biological substances; Z79.899 Other long term (current) drug therapy
CPT/HCPCS: 36415; 36430; 71020; 80048; 80053; 82150; 83690; 83735; 85018; 85025; 85610; 87804; 93005; 96361; 96365; 96366; 96375; 96376; 97802; 99285; A9270; C9113; G0378; J2405; J7030; J7040; P9016

== ENCOUNTER 2017-07-11 02:59 | Emergency (ER) | payer OTHER ==
[2017-07-11 03:37] VITALS: BP 130/70
--- NOTE | 2017-07-11 03:43 | EDM.PDOC ---
ED HPI GENERAL MEDICAL PROBLEM - General Chief Complaint: Lower Extremity Injury/Pain Stated Complaint: FELL OFF LADDER- PAIN IN LEFT LEG Time Seen by Provider: 07/11/17 03:42 Source of Information: Reports: Patient - History of Present Illness INITIAL COMMENTS - FREE TEXT/NARRATIVE: HISTORY AND PHYSICAL: History of present illness: Left knee pain after falling off of the latter history today at approximately 4 PM all hanging [place] lights he landed fairly directly on his left knee is been unable to bear weight since rates pain 8 out of 10 nonradiating No fever nausea vomiting chills sweats no head injury or loss of consciousness Review of systems: As per history of present illness and below otherwise all systems reviewed and negative. Past medical history: As per history of present illness and as reviewed below otherwise noncontributory. Surgical history: As per history of present illness and as reviewed below otherwise noncontributory. Social history: No reported history of drug or alcohol abuse. Family history: As per history of present illness and as reviewed below otherwise noncontributory. Physical exam: HEENT: Atraumatic, normocephalic, pupils reactive, negative for conjunctival pallor or scleral icterus, mucous membranes moist, throat clear, neck supple, nontender, trachea midline. Lungs: Clear to auscultation, breath sounds equal bilaterally, chest nontender. Heart: S1S2, regular, negative for clicks, rubs, or JVD. Abdomen: Soft, nondistended, nontender. Negative for masses or hepatosplenomegaly. Negative for costovertebral tenderness. Pelvis: Stable nontender. Genitourinary: Deferred. Rectal: Deferred. Extremities: Atraumatic, negative for cords or calf pain. Neurovascular unremarkable. Neuro: Awake, alert, oriented. Cranial nerves II through XII unremarkable. Cerebellum unremarkable. Motor and sensory unremarkable throughout. Exam nonfocal. Left knee hip and ankle and affected left knee slightly swollen no ballooning of the patella no redness warmth or open lesion entire limb is neurovascularly intact, limited exam due to pain slight laxity with lateral collateral ligamentous may just be the his nature, I cannot compare to right knee as it is total knee replacement Diagnostics: []Left knee complete Therapeutics: []Rest ice ibuprofen Immobilizer Crutches nonweightbearing Stollings No. 10 Impression: []Left knee pain Contusion Limited exam due to pain Questionable laxity on lateral collateral Definitive disposition and diagnosis as appropriate pending reevaluation and review of above. Left Knee Pain Score (Numeric/FACES): 8 - Related Data Allergies Allergy/AdvReac Type Severity Reaction Status Date / Time gabapentin Allergy memory loss Verified 07/11/17 03:26 tizanidine Allergy Drowsiness Verified 07/11/17 03:26 Home Meds: Home Meds . [No Known Home Meds] 07/11/17 [History] Past Medical History HEENT History: Reports: Impaired Vision Other HEENT History: wears glasses Cardiovascular History: Reports: None Respiratory History: Reports: None Gastrointestinal History: Reports: GERD, PUD Genitourinary History: Reports: None Musculoskeletal History: Reports: Arthritis Neurological History: Reports: Other (See Below) Other Neuro History: Insomnia Psychiatric History: Reports: Anxiety Endocrine/Metabolic History: Reports: Obesity/BMI 30+ Hematologic History: Reports: None Immunologic History: Reports: None Oncologic (Cancer) History: Reports: None Dermatologic History: Reports: None - Infectious Disease History Infectious Disease History: Reports: None - Past Surgical History Head Surgeries/Procedures: Reports: None GI Surgical History: Reports: Bariatric Procedure, Other (See Below) Endocrine Surgical History: Reports: None Musculoskeletal Surgical History: Reports: Knee Replacement, Other (See Below) Social & Family History - Family History Family Medical History: Noncontributory - Tobacco Use Smoking Status *Q: Never Smoker Second Hand Smoke Exposure: No - Caffeine Use Caffeine Use: Reports: None Caffeine Use Comment: daily - Alcohol Use Days Per Week of Alcohol Use: 0 Number of Drinks Per Day: 1 Total Drinks Per Week: 0 - Recreational Drug Use Recreational Drug Use: No Drug Use in Last 12 Months: No Review of Systems - Review of Systems Review Of Systems: ROS reveals no pertinent complaints other than HPI. ED EXAM, GENERAL - Physical Exam Exam: See Below Course - Vital Signs Last Recorded V/S: Last Vital Signs Temp 97.6 F 07/11/17 03:30 Pulse 54 L 07/11/17 03:30 Resp 18 07/11/17 03:30 BP 130/70 07/11/17 03:30 Pulse Ox 96 07/11/17 03:30 - Orders/Labs/Meds Orders: Active Orders 24 hr Category Date Time Status Knee 3V Lt [CR] Stat Exams 07/11/17 03:42 Taken Departure - Departure Time of Disposition: 05:03 Disposition: Home, Self-Care 01 Condition: Good Clinical Impression: Knee pain - Discharge Information Referrals: Denilson Cheung MD [Primary Care Provider] - Forms: ED Department Discharge Additional Instructions: Medication as prescribed Return if symptoms persist or worsen Crutches nonweightbearing Immobilizer : Call Number below for appropriate orthopedic follow-up [facility] [address], [address] [place] [address] my orthopedic The following information is given to patients seen in the emergency department who are being discharged to home. This information is to outline your options for follow-up care. We provide all patients seen in our emergency department with a follow-up referral. The need for follow-up, as well as the timing and circumstances, are variable depending upon the specifics of your emergency department visit. If you don't have a primary care physician on staff, we will provide you with a referral. We always advise you to contact your personal physician following an emergency department visit to inform them of the circumstance of the visit and for follow-up with them and/or the need for any referrals to a consulting specialist. The emergency department will also refer you to a specialist when appropriate. This referral assures that you have the opportunity for follow-up care with a specialist. All of these measure are taken in an effort to provide you with optimal care, which includes your follow-up. Under all circumstances we always encourage you to contact your private physician who remains a resource for coordinating your care. When calling for follow-up care, please make the office aware that this follow-up is from your recent emergency room visit. If for any reason you are refused follow-up, please contact the [facility] emergency department at and asked to speak to the emergency department charge nurse. - My Orders Last 24 Hours: My Active Orders 07/11/17 03:42 Knee 3V Lt [CR] Stat - Assessment/Plan Last 24 Hours: My Active Orders 07/11/17 03:42 Knee 3V Lt [CR] Stat
--- NOTE | 2017-07-11 17:11 | CR ---
EXAM DATE: 07/11/17 PATIENT'S AGE: 42 Patient: BRIAN ANNA Facility: [place], [place] Site . Site : 1975 Study: XRay Knee Left [id number] 4:14:13 AM Ordering Physician: Doctor Cardenas Final Report: INDICATION: Fell off ladder. TECHNIQUE: Knee radiographs 3 views COMPARISON: 07/19/2016 FINDINGS: Bones: Alignment is normal. No acute fractures or aggressive osseous lesions seen. Joint spaces: No significant joint effusion is seen. The joint spaces of the medial, lateral, and patellofemoral compartments are unremarkable. Soft tissues: Unremarkable. No radiopaque foreign bodies are noted. IMPRESSION: 1. No acute osseous injuries are identified. Dictated by Asher Donaldson MD @ 07/11/2017 4:15:25 AM Dictated by: Asher Donaldson MD @ 07/11/2017 04:15:31 (Electronic Signature) Report Signed by Proxy. MITCHELL
== END 2017-07-11 05:20 | disposition home or self-care (01) ==
LOC: MW.ED 02:59
DX: S80.02XA Contusion of left knee, initial encounter (principal); Z88.8 Allergy status to other drugs, medicaments and biological substances; W11.XXXA Fall on and from ladder, initial encounter
CPT/HCPCS: 73562-26-LT; 73562-LT; 99282; 99283

== ENCOUNTER 2017-09-10 00:53 | Inpatient (IN) | payer OTHER ==
[2017-09-10] MEDS ORDERED: Sodium Chloride 0.9% 1,000 ML IV ONE (01:09)
[2017-09-10] MEDS ORDERED: Ondansetron 4 MG/2 ML SDV IVPUSH ONE (01:10)
[2017-09-10] MEDS ORDERED: Pantoprazole 40 MG Vial IVPUSH ONE (01:10)
--- NOTE | 2017-09-10 01:11 | EDM.PDOC ---
ED HPI GENERAL MEDICAL PROBLEM - General Chief Complaint: Abdominal Pain Stated Complaint: INTERNAL BLEEDING Time Seen by Provider: 09/10/17 01:10 Source of Information: Reports: Patient - History of Present Illness INITIAL COMMENTS - FREE TEXT/NARRATIVE: HISTORY AND PHYSICAL: History of present illness: [Patient presents with abdominal pain he has a history of bariatric surgery and gastric bypass, history of gastric ulcers in the past he states he feels he may have some bleeding as he has had some dark stools over the last couple of days. His main complaint is that of 8 out of 10 abdominal pain worse in the epigastrium radiating to the back no fever he's vomited with intake of fluids and solid food no chest pain shortness breath headache dizziness palpitation no urine symptoms dark stools reported by patient Patient has history of gastric bypass/bariatric surgery Last colonoscopy 5 months prior ] Review of systems: As per history of present illness and below otherwise all systems reviewed and negative. Past medical history: As per history of present illness and as reviewed below otherwise noncontributory. Surgical history: As per history of present illness and as reviewed below otherwise noncontributory. Social history: No reported history of drug or alcohol abuse. Family history: As per history of present illness and as reviewed below otherwise noncontributory. Physical exam: HEENT: Atraumatic, normocephalic, pupils reactive, negative for conjunctival pallor or scleral icterus, mucous membranes moist, throat clear, neck supple, nontender, trachea midline. Lungs: Clear to auscultation, breath sounds equal bilaterally, chest nontender. Heart: S1S2, regular, negative for clicks, rubs, or JVD. Abdomen: Soft, nondistended, focus of tenderness in the epigastrium he also has a focus in the right lower quadrant with guarding no rebound tenderness. Negative for masses or hepatosplenomegaly. Negative for costovertebral tenderness. Pelvis: Stable nontender. Genitourinary: Deferred. Rectal: External exam no mass scarred lesion internal exam no mass scarred lesion guaiac is negative Extremities: Atraumatic, negative for cords or calf pain. Neurovascular unremarkable. Neuro: Awake, alert, oriented. Cranial nerves II through XII unremarkable. Cerebellum unremarkable. Motor and sensory unremarkable throughout. Exam nonfocal. Diagnostics: [CBC CMP UA troponin amylase lipase ]CT abdomen pelvis with contrast Guaiac-negative Therapeutics: [1 L normal saline bolus Zofran 8 mg IV Proton X 80 mg IV Morphine 2 mg IV Normal saline saline to run at 1 50 mL per hour Impression: Pancreatitis/elevated lipase Abdominal pain Right lower quadrant pain focus with guarding no rebound CT negative no white count Vomiting [Black stool] Definitive disposition and diagnosis as appropriate pending reevaluation and review of above. Abdomen Pain Score (Numeric/FACES): 8 - Related Data Allergies Allergy/AdvReac Type Severity Reaction Status Date / Time gabapentin Allergy memory loss Verified 09/10/17 01:04 tizanidine Allergy Drowsiness Verified 09/10/17 01:04 Home Meds: Home Meds Pantoprazole Sodium [Protonix] 10 mg PO BID 09/10/17 [History] oxyCODONE HCl/Acetaminophen [Percocet 10-325 mg Tablet] 1 each PO ASDIRECTED PRN 09/10/17 [History] Past Medical History HEENT History: Reports: Impaired Vision Other HEENT History: wears glasses Cardiovascular History: Reports: None Respiratory History: Reports: None Gastrointestinal History: Reports: GERD, PUD Genitourinary History: Reports: None Musculoskeletal History: Reports: Arthritis Neurological History: Reports: Other (See Below) Other Neuro History: Insomnia Psychiatric History: Reports: Anxiety Endocrine/Metabolic History: Reports: Obesity/BMI 30+ Hematologic History: Reports: None Immunologic History: Reports: None Oncologic (Cancer) History: Reports: None Dermatologic History: Reports: None - Infectious Disease History Infectious Disease History: Reports: Chicken Pox - Past Surgical History Head Surgeries/Procedures: Reports: None GI Surgical History: Reports: Bariatric Procedure Endocrine Surgical History: Reports: None Musculoskeletal Surgical History: Reports: Knee Replacement, Other (See Below) Social & Family History - Family History Family Medical History: Noncontributory - Tobacco Use Smoking Status *Q: Never Smoker Second Hand Smoke Exposure: No - Caffeine Use Caffeine Use: Reports: Soda Caffeine Use Comment: daily - Alcohol Use Days Per Week of Alcohol Use: 0 Number of Drinks Per Day: 1 Total Drinks Per Week: 0 - Recreational Drug Use Recreational Drug Use: No Drug Use in Last 12 Months: No ED ROS GENERAL - Review of Systems Review Of Systems: ROS reveals no pertinent complaints other than HPI. ED EXAM, GENERAL - Physical Exam Exam: See Below Course - Vital Signs Last Recorded V/S: Last Vital Signs Temp 98.9 F 09/10/17 03:56 Pulse 56 L 09/10/17 03:56 Resp 18 09/10/17 03:56 BP 123/63 09/10/17 03:56 Pulse Ox 98 09/10/17 03:56 - Orders/Labs/Meds Orders: Active Orders 24 hr Category Date Time Status Abdomen Pelvis w Cont [CT] Stat Exams 09/10/17 01:58 Taken Guaiac [OCCULT BLOOD DIAGNOSTIC] [OP] Stat Lab 09/10/17 01:45 Uncollected UA W/MICROSCOPIC [URIN] Stat Lab 09/10/17 01:09 Uncollected Sodium Chloride 0.9% [Normal Saline] 1,000 ml Med 09/10/17 03:45 Active IV STAT Medication Orders Sodium Chloride (Normal Saline) 1,000 mls @ 150 mls/hr IV STAT MYA Last Admin: 09/10/17 03:58 Dose: 150 mls/hr Labs: Laboratory Tests 09/10/17 09/10/17 Range/Units 01:30 01:30 WBC 9.64 (4.0-11.0) K/uL RBC 4.75 (4.50-5.90) M/uL Hgb 13.9 (13.0-17.0) g/dL Hct 41.6 (38.0-50.0) % MCV 87.6 (80.0-98.0) fL MCH 29.3 (27.0-32.0) pg MCHC 33.4 (31.0-37.0) g/dL RDW Std Deviation 40.1 (28.0-62.0) fl RDW Coeff of Brendan 13 (11.0-15.0) % Plt Count 336 (150-400) K/uL MPV 9.00 (7.40-12.00) fL Neut % (Auto) 57.9 (48.0-80.0) % Lymph % (Auto) 27.5 (16.0-40.0) % [place] % (Auto) 13.4 (0.0-15.0) % Eos % (Auto) 0.9 (0.0-7.0) % Baso % (Auto) 0.3 (0.0-1.5) % Neut # (Auto) 5.6 (1.4-5.7) K/uL Lymph # (Auto) 2.7 H (0.6-2.4) K/uL [place] # (Auto) 1.3 H (0.0-0.8) K/uL Eos # (Auto) 0.1 (0.0-0.7) K/uL Baso # (Auto) 0.0 (0.0-0.1) K/uL Sodium 144 (136-146) mmol/L Potassium 3.4 L (3.5-5.1) mmol/L Chloride 112 H (98-110) mmol/L Carbon Dioxide 22 (21-31) mmol/L BUN 7 (6.0-23.0) mg/dL Creatinine 0.8 (0.6-1.5) mg/dL Est Cr Clr Drug Dosing 140.83 mL/min Estimated GFR (MDRD) > 60.0 ml/min Glucose 93 (60-110) mg/dL Calcium 9.0 (8.8-10.8) mg/dL Total Bilirubin 0.3 (0.1-1.5) mg/dL AST 17 (5-40) IU/L ALT 21 (8-54) IU/L Alkaline Phosphatase 122 (40-150) Troponin I < 0.10 (0.0-0.29) NG/ML Total Protein 6.7 (6.0-8.0) g/dL Albumin 4.1 (3.5-5.0) g/dL Globulin 2.6 (2.0-3.5) g/dL Albumin/Globulin Ratio 1.6 (1.3-2.8) Amylase 51 (10-90) U/L Lipase 105 H (7-80) U/L Meds: Medications Generic Name Dose Route Start Last Admin Trade Name Freq PRN Reason Stop Dose Admin Sodium Chloride 1,000 mls @ 150 mls/hr 09/10/17 03:45 09/10/17 03:58 Normal Saline IV 150 mls/hr STAT MYA Administration Discontinued Medications Generic Name Dose Route Start Last Admin Trade Name Freq PRN Reason Stop Dose Admin Sodium Chloride 1,000 mls @ 999 mls/hr 09/10/17 01:09 09/10/17 01:39 Normal Saline IV 09/10/17 02:09 999 mls/hr STAT ONE Administration Morphine Sulfate 2 mg 09/10/17 03:45 09/10/17 03:59 Morphine IVPUSH 09/10/17 03:46 2 mg ONETIME ONE Administration Ondansetron HCl 8 mg 09/10/17 01:10 09/10/17 01:40 Zofran IVPUSH 09/10/17 01:11 8 mg ONETIME ONE Administration Pantoprazole Sodium 80 mg 09/10/17 01:10 09/10/17 01:42 Protonix Iv IVPUSH 09/10/17 01:11 80 mg .BOLUS ONE Administration Departure - Departure Time of Disposition: 04:02 Disposition: Admitted As Inpatient 64 Condition: Fair Clinical Impression: Abdominal pain, Pancreatitis - Discharge Information Referrals: Denilson Cheung MD [Primary Care Provider] - Forms: ED Department Discharge - My Orders Last 24 Hours: My Active Orders 09/10/17 01:09 UA W/MICROSCOPIC [URIN] Stat 09/10/17 01:45 Guaiac [OCCULT BLOOD DIAGNOSTIC] [OP] Stat 09/10/17 01:58 Abdomen Pelvis w Cont [CT] Stat 09/10/17 03:45 Sodium Chloride 0.9% [Normal Saline] 1,000 ml IV STAT - Assessment/Plan Last 24 Hours: My Active Orders 09/10/17 01:09 UA W/MICROSCOPIC [URIN] Stat 09/10/17 01:45 Guaiac [OCCULT BLOOD DIAGNOSTIC] [OP] Stat 09/10/17 01:58 Abdomen Pelvis w Cont [CT] Stat 09/10/17 03:45 Sodium Chloride 0.9% [Normal Saline] 1,000 ml IV STAT
[2017-09-10 02:05] LABS: CHLORIDE,CL 112 mmol/L (98-110); SODIUM,NA 144 mmol/L (136-146)
[2017-09-10] MEDS ORDERED: Morphine 2 MG/ML Syringe IVPUSH ONE (03:45)
[2017-09-10] MEDS ORDERED: Sodium Chloride 0.9% 1,000 ML IV SCH (03:45)
[2017-09-10] MEDS ORDERED: Ondansetron 4 MG/2 ML SDV IVPUSH PRN (05:20)
[2017-09-10] MEDS: Morphine 2 MG/ML Syringe IVPUSH PRN ×3 (07:31→18:03)
[2017-09-10] MEDS: Sodium Chloride 0.9% 1,000 ML IV SCH ×2 (09:33→17:38)
[2017-09-10] MEDS ORDERED: Sodium Chloride 0.9% with KCl 1,000 ML IV SCH (09:45)
[2017-09-10] MEDS: Sertraline 25 MG Tab PO SCH (11:15)
--- NOTE | 2017-09-10 13:05 | PCM.HP ---
H&P History of Present Illness - General Date of Service: 09/10/17 Admit Problem/Dx: Admission Diagnosis/Problem Admission Diagnosis/Problem Pancreatitis Source of Information: Patient - History of Present Illness Initial Comments - Free Text/Narative: 42-year-old male with a history of gastric bypass surgery presented to the emergency department with a chief complaint of epigastric pain for the past couple of days and also noticing black tarry stools. When further questioned, the patient tells me that this was an isolated event in terms of his stool, he said there is maybe a few teaspoons full of black blood in his stool. Given his history of also intestinal ulcers, he was concerned about this. He tells me that h has been admitted to the hospital in the past requiring multiple transfusions. ED course: CBC unremarkable CMP potassium 3.4 otherwise unremarkable lipase 105 CT abdomen unremarkable Right upper quadrant ultrasound negative for acute cholecystitis guaiac stool negative Abdomen Pain Score (Numeric/FACES): 7 - Related Data Allergies/Adverse Reactions: Allergies Allergy/AdvReac Type Severity Reaction Status Date / Time gabapentin Allergy memory loss Verified 09/10/17 01:04 tizanidine Allergy Drowsiness Verified 09/10/17 01:04 Home Medications: Home Meds Pantoprazole Sodium [Protonix] 10 mg PO BID 09/10/17 [History] oxyCODONE HCl/Acetaminophen [Percocet 10-325 mg Tablet] 1 each PO ASDIRECTED PRN 09/10/17 [History] Past Medical History HEENT History: Reports: Impaired Vision Other HEENT History: wears glasses Cardiovascular History: Reports: None Respiratory History: Reports: None Gastrointestinal History: Reports: GERD, PUD Genitourinary History: Reports: None Musculoskeletal History: Reports: Arthritis Neurological History: Reports: Other (See Below) Other Neuro History: Insomnia Psychiatric History: Reports: Anxiety Endocrine/Metabolic History: Reports: Obesity/BMI 30+ Hematologic History: Reports: None Immunologic History: Reports: None Oncologic (Cancer) History: Reports: None Dermatologic History: Reports: None - Infectious Disease History Infectious Disease History: Reports: Chicken Pox - Past Surgical History Head Surgeries/Procedures: Reports: None GI Surgical History: Reports: Bariatric Procedure Endocrine Surgical History: Reports: None Musculoskeletal Surgical History: Reports: Knee Replacement, Other (See Below) Social & Family History - Family History Family Medical History: Noncontributory - Tobacco Use Smoking Status *Q: Never Smoker Second Hand Smoke Exposure: No - Caffeine Use Caffeine Use: Reports: Soda Caffeine Use Comment: daily - Alcohol Use Days Per Week of Alcohol Use: 0 Number of Drinks Per Day: 1 Total Drinks Per Week: 0 - Recreational Drug Use Recreational Drug Use: No Drug Use in Last 12 Months: No H&P Review of Systems - Review of Systems: Review Of Systems: See Below General: Reports: No Symptoms HEENT: Reports: No Symptoms Pulmonary: Reports: No Symptoms Cardiovascular: Reports: No Symptoms Gastrointestinal: Reports: Abdominal Pain, Black Stool, Nausea, Vomiting Genitourinary: Reports: No Symptoms Musculoskeletal: Reports: No Symptoms Skin: Reports: No Symptoms Psychiatric: Reports: Anxiety Neurological: Reports: No Symptoms Hematologic/Lymphatic: Reports: No Symptoms Immunologic: Reports: No Symptoms Exam - Exam Exam: See Below - Vital Signs Vital Signs: Last Vital Signs Temp 36.7 C 09/10/17 08:00 Pulse 55 L 09/10/17 08:00 Resp 16 09/10/17 08:00 BP 121/70 09/10/17 08:00 Pulse Ox 96 09/10/17 08:00 Weight: 155.5 kg - Exam General: Alert, Oriented, Cooperative HEENT: Conjunctiva Clear, EACs Clear, EOMI Neck: Supple, Trachea Midline, +2 Carotid Pulse wo Bruit Lungs: Clear to Auscultation, Normal Respiratory Effort Cardiovascular: Regular Rate, Regular Rhythm, Normal S1, Normal S2 GI/Abdominal Exam: Normal Bowel Sounds, Tender (Mild epigastric tenderness with no rebound. Negative Petersen. No CVA tenderness) Peripheral Pulses: 2+: Posterior Tibial (L), Posterior Tibial (R) Skin: Warm Neurological: Cranial Nerves Intact Neuro Extensive - Mental Status: Alert, Oriented x3 Neuro Extensive - Motor, Sensory, Reflexes: CN II-XII Intact Psychiatric: Alert, Normal Affect, Normal Mood - Patient Data Lab Results Last 24 hrs: Laboratory Results - last 24 hr 09/10/17 Range/Units 06:30 Urine Color YELLOW Urine Appearance CLEAR Urine pH 5.5 (5.0-8.0) Ur Specific Baird 1.015 (1.001-1.035) Urine Protein NEGATIVE (NEGATIVE) mg/dL Urine Glucose (UA) NEGATIVE (NEGATIVE) mg/dL Urine Ketones NEGATIVE (NEGATIVE) mg/dL Urine Occult Blood NEGATIVE (NEGATIVE) Urine Nitrite NEGATIVE (NEGATIVE) Urine Bilirubin NEGATIVE (NEGATIVE) Urine Urobilinogen 0.2 (<2.0) EU/dL Ur Leukocyte Esterase NEGATIVE (NEGATIVE) Urine RBC 0-1 (0-2/HPF) Urine WBC 0-1 (0-5/HPF) Ur Epithelial Cells RARE (NONE-FEW) Urine Bacteria RARE (NEGATIVE) Result Diagrams: 09/10/17 01:30 09/10/17 01:30 *Q Meaningful Use (ADM) - VTE *Q VTE Criteria *Q: - Stroke *Q Stroke Criteria *Q: - AMI *Q AMI Criteria *Q: Problem List Initiated/Reviewed/Updated: Yes Orders Last 24hrs: Active Orders 24 hr Category Date Time Status Clear Liquid Diet [DIET] Diet 09/10/17 Lunch Active Morphine Med 09/10/17 05:19 Active 2 mg IVPUSH Q2H PRN Ondansetron [Zofran] Med 09/10/17 05:20 Active 4 mg IVPUSH Q3H PRN Sertraline [Zoloft] Med 09/10/17 11:00 Active 25 mg PO DAILY Sodium Chloride 0.9% [Normal Saline] 1,000 ml Med 09/10/17 05:30 Active IV ASDIRECTED Sodium Chloride 0.9% with KCl [Normal Saline with 40 Med 09/10/17 09:45 Active mEq KCl] 1,000 ml IV ASDIRECTED Medication Orders Sodium Chloride (Normal Saline) 1,000 mls @ 150 mls/hr IV STAT MYA Last Admin: 09/10/17 03:58 Dose: 150 mls/hr Sodium Chloride (Normal Saline) 1,000 mls @ 200 mls/hr IV ASDIRECTED MYA Last Admin: 09/10/17 09:33 Dose: 200 mls/hr Potassium Chloride/Sodium Chloride (Normal Saline With 40 Meq Kcl) 1,000 mls @ 150 mls/hr IV ASDIRECTED MYA Last Admin: 09/10/17 10:36 Dose: 150 mls/hr Morphine Sulfate (Morphine) 2 mg IVPUSH Q2H PRN PRN Reason: Pain Last Admin: 09/10/17 11:22 Dose: 2 mg Admin: 09/10/17 07:31 Dose: 2 mg Ondansetron HCl (Zofran) 4 mg IVPUSH Q3H PRN PRN Reason: Nausea/Vomiting Sertraline HCl (Zoloft) 25 mg PO DAILY MYA Last Admin: 09/10/17 11:15 Dose: 25 mg Assessment/Plan Comment:: assessment: #1. Elevated lipase #2. Mild hypokalemia #3. Nausea and vomiting #4. History of duodenal ulcers, gastric bypass #5. Anxiety plan: #1. Admit to the floor for observation. Hold on anticoagulation for DVT prophylaxis. SCDs only. Full code. #2. Clear liquid diet. Advanced as tolerated. #3. Protonix 40 mg twice a day #4. CBC, CMP for tomorrow morning #5. Patient may need a repeat EGD as an outpatient depending on his hemodynamic status movement forward. Currently, patient's hemoglobin is normal. #6. Zoloft 25 mg by mouth daily for anxiety which is a home med according to patient
[2017-09-10] MEDS ORDERED: Acetaminophen/oxyCODONE 325-10 MG Tab PO PRN (13:07)
[2017-09-10] MEDS: Acetaminophen/oxyCODONE 325-10 MG Tab PO PRN (21:48)
[2017-09-10] MEDS: Pantoprazole 40 MG Vial IV SCH (21:49)
[2017-09-11] MEDS: Acetaminophen/oxyCODONE 325-10 MG Tab PO PRN ×3 (03:08→13:34)
[2017-09-11 05:40] LABS: CHLORIDE,CL 113 mmol/L (98-110); SODIUM,NA 144 mmol/L (136-146)
[2017-09-11] MEDS: Sodium Chloride 0.9% 1,000 ML IV SCH (06:55)
[2017-09-11] MEDS: Sertraline 25 MG Tab PO SCH (08:54)
[2017-09-11] MEDS: Pantoprazole 40 MG Vial IV SCH (08:54)
[2017-09-11 09:17] VITALS: BP 123/66
--- NOTE | 2017-09-11 09:55 | PCM.DCSUM1 ---
Discharge Summary - Discharge Data Discharge Date: 09/11/17 Discharge Disposition: Home, Self-Care 01 Condition: Fair - Patient Summary/Data Hospital Course: 42-year-old male with a history of gastric bypass surgery who presented to the emergency department with a chief complaint of epigastric pain for the past couple of days and also noticing black tarry stools. He has a history of gastric ulcers in the past and is on carafate and protonix prior to admission. He was admitted and placed on IV fluids and IV protonix. CT scan of abdomen was unremarkable. Hgb remained stable at 12.8. His abdominal pain resolved and his stools were hemocult negative and non bloody. Today he is tolerating a regular diet and requesting discharge home. He was discharged home to have follow up with [facility]. - Patient Instructions Diet: Usual Diet as Tolerated - Discharge Plan Home Medications: Home Meds Pantoprazole Sodium [Protonix] 10 mg PO BID 09/10/17 [History] oxyCODONE HCl/Acetaminophen [Percocet 10-325 mg Tablet] 1 each PO ASDIRECTED PRN 09/10/17 [History] Forms: ED Department Discharge Referrals: Denilson Cheung MD [Primary Care Provider] - - Patient Data Vitals - Most Recent: Last Vital Signs Temp 36.6 C 09/11/17 08:00 Pulse 48 L 09/11/17 08:00 Resp 20 09/11/17 08:00 BP 123/66 09/11/17 08:00 Pulse Ox 97 09/11/17 08:00 Weight - Most Recent: 155.5 kg I&O - Last 24 hours: Intake & Output 09/10/17 09/11/17 09/11/17 22:59 06:59 14:59 Intake Total 1579 1500 Output Total 850 1550 Balance 729 -50 Lab Results - Last 24 hrs: Laboratory Results - last 24 hr 09/10/17 09/11/17 09/11/17 Range/Units 06:30 04:45 04:45 WBC 6.75 (4.0-11.0) K/uL RBC 4.34 L (4.50-5.90) M/uL Hgb 12.8 L (13.0-17.0) g/dL Hct 38.6 (38.0-50.0) % MCV 88.9 (80.0-98.0) fL MCH 29.5 (27.0-32.0) pg MCHC 33.2 (31.0-37.0) g/dL RDW Std Deviation 43.8 (28.0-62.0) fl RDW Coeff of Brendan 13 (11.0-15.0) % Plt Count 265 (150-400) K/uL MPV 9.20 (7.40-12.00) fL Nucleated RBC % 0.0 /100WBC Nucleated RBCs # 0 K/uL Sodium 144 (136-146) mmol/L Potassium 3.8 (3.5-5.1) mmol/L Chloride 113 H (98-110) mmol/L Carbon Dioxide 26 (21-31) mmol/L BUN 7 (6.0-23.0) mg/dL Creatinine 0.8 (0.6-1.5) mg/dL Est Cr Clr Drug Dosing 141.58 mL/min Estimated GFR (MDRD) > 60.0 ml/min Glucose 95 (60-110) mg/dL Calcium 8.9 (8.8-10.8) mg/dL Total Bilirubin 0.5 (0.1-1.5) mg/dL AST 12 (5-40) IU/L ALT 17 (8-54) IU/L Alkaline Phosphatase 106 (40-150) Total Protein 5.7 L (6.0-8.0) g/dL Albumin 3.6 (3.5-5.0) g/dL Globulin 2.1 (2.0-3.5) g/dL Albumin/Globulin Ratio 1.7 (1.3-2.8) Urine Color YELLOW Urine Appearance CLEAR Urine pH 5.5 (5.0-8.0) Ur Specific [place] 1.015 (1.001-1.035) Urine Protein NEGATIVE (NEGATIVE) mg/dL Urine Glucose (UA) NEGATIVE (NEGATIVE) mg/dL Urine Ketones NEGATIVE (NEGATIVE) mg/dL Urine Occult Blood NEGATIVE (NEGATIVE) Urine Nitrite NEGATIVE (NEGATIVE) Urine Bilirubin NEGATIVE (NEGATIVE) Urine Urobilinogen 0.2 (<2.0) EU/dL Ur Leukocyte Esterase NEGATIVE (NEGATIVE) Urine RBC 0-1 (0-2/HPF) Urine WBC 0-1 (0-5/HPF) Ur Epithelial Cells RARE (NONE-FEW) Urine Bacteria RARE (NEGATIVE) HELLEN Results - Last 24 hrs: Microbiology 09/10/17 15:00 Stool Occult Blood (HELLEN) - Final Stool / Feces NEGATIVE OCCULT BLOOD Med Orders - Current: Current Medications Sodium Chloride (Normal Saline) 1,000 mls @ 75 mls/hr IV ASDIRECTED [facility] Last Admin: 09/11/17 06:55 Dose: 75 mls/hr Morphine Sulfate (Morphine) 2 mg IVPUSH Q2H PRN PRN Reason: Pain Last Admin: 09/10/17 18:03 Dose: 2 mg Ondansetron HCl (Zofran) 4 mg IVPUSH Q3H PRN PRN Reason: Nausea/Vomiting Oxycodone/Acetaminophen (Percocet 325-10 Mg) 1 tab PO Q4H PRN PRN Reason: Pain Last Admin: 09/11/17 08:55 Dose: 1 tab Pantoprazole Sodium (Protonix Iv) 40 mg IV Q12HR [facility] Last Admin: 09/11/17 08:54 Dose: 40 mg Sertraline HCl (Zoloft) 25 mg PO DAILY [facility] Last Admin: 09/11/17 08:54 Dose: 25 mg Discontinued Medications Sodium Chloride (Normal Saline) 1,000 mls @ 999 mls/hr IV STAT ONE Stop: 09/10/17 02:09 Last Admin: 09/10/17 01:39 Dose: 999 mls/hr Sodium Chloride (Normal Saline) 1,000 mls @ 150 mls/hr IV STAT [facility] Last Admin: 09/10/17 03:58 Dose: 150 mls/hr Potassium Chloride/Sodium Chloride (Normal Saline With 40 Meq Kcl) 1,000 mls @ 150 mls/hr IV ASDIRECTED [facility] Last Admin: 09/10/17 10:36 Dose: 150 mls/hr Morphine Sulfate (Morphine) 2 mg IVPUSH ONETIME ONE Stop: 09/10/17 03:46 Last Admin: 09/10/17 03:59 Dose: 2 mg Ondansetron HCl (Zofran) 8 mg IVPUSH ONETIME ONE Stop: 09/10/17 01:11 Last Admin: 09/10/17 01:40 Dose: 8 mg Oxycodone/Acetaminophen (Percocet 325-10 Mg) 1 tab PO ASDIRECTED PRN PRN Reason: Pain Last Admin: 09/10/17 14:58 Dose: 1 tab Pantoprazole Sodium (Protonix Iv) 80 mg IVPUSH .BOLUS ONE Stop: 09/10/17 01:11 Last Admin: 09/10/17 01:42 Dose: 80 mg *Q Meaningful Use (DIS) - VTE *Q VTE Criteria *Q: - Stroke *Q Stroke Criteria *Q: - AMI *Q AMI Criteria *Q:
--- NOTE | 2017-09-12 13:56 | CT ---
EXAM DATE: 09/10/17 PATIENT'S AGE: 42 Patient: BRIAN ANNA Facility: [place], [place] Site . Site : 1975 Study: CT Abdomen/Pelvis With [id number] 2:37:45 AM Ordering Physician: Tobi Hansen Final Report: INDICATION: Right lower quadrant pain, nausea, vomiting, diarrhea TECHNIQUE: CT abdomen and pelvis acquired with 100 cc Isovue 370 IV contrast. COMPARISON: None. FINDINGS: Lower chest: Unremarkable. Liver: Unremarkable. Spleen: Unremarkable. Pancreas: Unremarkable. Gallbladder and bile ducts: Unremarkable. Adrenal glands: Unremarkable. Kidneys: Unremarkable. GI tract: Status post gastric bypass procedure. Appendix is normal. Vascular structures: Unremarkable. Lymph nodes: Unremarkable. Miscellaneous: Unremarkable. No free air or significant free fluid. Pelvic Organs: Unremarkable. Bones: Unremarkable for age. IMPRESSION: No acute intra-abdominal inflammatory process. Normal appendix. Status post gastric bypass procedure. Please note that all CT scans at this facility use dose modulation, iterative reconstruction, and/or weight-based dosing when appropriate to reduce radiation dose to as low as reasonably achievable. Dictated by Dai West MD @ Sep 10 2017 3:27AM (Electronic Signature) Report Signed by Proxy. [facility]ENTERMoriah
[2017-09-12] MEDS ORDERED: Iopamidol 755 Mg/ML 100 ML Bottle IVPUSH STA (21:18)
== END 2017-09-11 14:20 | disposition home or self-care (01) | DRG 392 ==
LOC: MW.ED 00:53 → MW.MS 04:03
PROVIDERS: ADMIT Internal Medicine; ATTEND Internal Medicine
DX: R10.13 Epigastric pain (principal); E87.6 Hypokalemia; R11.2 Nausea with vomiting, unspecified; R79.89 Other specified abnormal findings of blood chemistry; F41.9 Anxiety disorder, unspecified; Z87.11 Personal history of peptic ulcer disease; Z98.84 Bariatric surgery status; Z88.8 Allergy status to other drugs, medicaments and biological substances
CPT/HCPCS: 36415; 74177; 74177-26; 80053; 81001; 82150; 82272; 83690; 84484; 85025; 85027; 87804; 96361; 96374; 96375; 99284; 99285-25; A9270-GY; C9113; J2270; J2405; J3480; J7040; Q9967

== ENCOUNTER 2017-09-29 10:19 | Emergency (ER) | payer OTHER ==
[2017-09-29] MEDS ORDERED: LORazepam 2 MG/ML SDV IVPUSH ONE (10:41)
[2017-09-29] MEDS ORDERED: Ondansetron 4 MG/2 ML SDV IVPUSH ONE (10:41)
[2017-09-29] MEDS ORDERED: Sodium Chloride 0.9% 500 ML IV SCH (10:45)
--- NOTE | 2017-09-29 10:46 | EDM.PDOCBH ---
ED HPI GENERAL MEDICAL PROBLEM - General Chief Complaint: Drug or Alcohol Abuse Stated Complaint: MEDS WITHDRAWAL Time Seen by Provider: 09/29/17 10:26 Source of Information: Reports: Patient History Limitations: Reports: No Limitations - History of Present Illness INITIAL COMMENTS - FREE TEXT/NARRATIVE: HISTORY AND PHYSICAL: History of present illness: Patient is a 42-year-old male who presents to the emergency room with complaints of opioid withdrawal. He states he has chronically been using oxycodone to manage his chronic bilateral knee pain. He states that he has gotten to the point where he had been "doctor shopping" and using more medication than prescribed. States he is gotten to the point where he is " scared of himself" at the amount of medication he's been using. For the past 3 days he has not used or had any of his oxycodone and has had nausea, vomiting, palpitations and anxiety. He is here today requesting help going through the withdrawal process. Denies any thoughts of self harm or harming others. Denies any chest pain, SOB, abdominal pain, diarrhea/constipation. States he has an appointment with Dr. Cheung on 10/05/2017. Inquiring about Methadone and/or other forms of medications to help him "get off pain medications". Was recently admitted to the hospital on 09/10/2017 and prescribed Oxycodone to help manage his pancreatitis pain. Review of systems: As per history of present illness and below otherwise all systems reviewed and negative. Past medical history: As per history of present illness and as reviewed below otherwise noncontributory. Surgical history: As per history of present illness and as reviewed below otherwise noncontributory. Social history: No reported history of drug or alcohol abuse. Family history: As per history of present illness and as reviewed below otherwise noncontributory. Physical exam: General: Well-developed and well-nourished 42-year-old male. Alert and oriented. Nontoxic appearing and in no acute distress. He is calm and interacts appropriately with staff. HEENT: Atraumatic, normocephalic, pupils reactive, negative for conjunctival pallor or scleral icterus, mucous membranes moist, throat clear, neck supple, nontender, trachea midline. Lungs: Clear to auscultation, breath sounds equal bilaterally, chest nontender. Heart: S1S2, regular rate and rhythm Abdomen: Soft, nondistended, nontender. Negative for masses or hepatosplenomegaly. Negative for costovertebral tenderness. Pelvis: Stable nontender. Genitourinary: Deferred. Rectal: Deferred. Extremities: Atraumatic, moves all extremities per self without difficulty or deficits, wearing a knee brace to left knee, negative for cords or calf pain. Neurovascular unremarkable. Neuro: Awake, alert, oriented. Cranial nerves II through XII unremarkable. Cerebellum unremarkable. Motor and sensory unremarkable throughout. Exam nonfocal. EKG was normal sinus rhythm, rate 62. VSS. Labs within normal limits. Discussed with patient that we are unable to treat his withdrawal with medication (such as Methadone/Valium/Ativan) as an outpatient through an emergency room setting. I did have our nursing staff call his primary care provider, Dr. Cheung, to expedite his follow-up appointment to tomorrow 09/30/2017 at 2pm. Voices understanding and is agreeable to routine labs and Zofran while here. He does not have a ride (drove himself) so I am unable to give him anything for his anxiety. Voiced concern to him about prescribing him anything at this time- he has an appointment tomorrow with his PCP. Diagnostics: CBC, CMP, troponin, EKG Therapeutics: Normal saline, Zofran Impression: Opioid dependence Plan: 1. An expedited appointment has been made for you to see Dr Cheung at 2pm at [facility], tomorrow (09/30/2017). 2. Continue to abstain from Opioids/Narcotics. Three tabs of Ativan have been prescribed, may take 1 tab every 6 hours. May cause drowsiness, so do not take while driving or needing to be functioning outside of the house. Zofran as needed for nausea. 3. Return to the ED as needed and as discussed. Definitive disposition and diagnosis as appropriate pending reevaluation and review of above. Duration: Day(s): Location: Reports: Chest - Related Data Allergies Allergy/AdvReac Type Severity Reaction Status Date / Time gabapentin Allergy memory loss Verified 09/29/17 10:31 tizanidine Allergy Drowsiness Verified 09/29/17 10:31 Home Meds: Home Meds Pantoprazole Sodium [Protonix] 10 mg PO BID 09/10/17 [History] oxyCODONE HCl/Acetaminophen [Percocet 10-325 mg Tablet] 1 each PO ASDIRECTED PRN 09/10/17 [History] Sucralfate [Carafate] 1 tab PO QID 09/29/17 [History] Past Medical History HEENT History: Reports: Impaired Vision Other HEENT History: wears glasses Cardiovascular History: Reports: None Respiratory History: Reports: None Gastrointestinal History: Reports: GERD, PUD Genitourinary History: Reports: None Musculoskeletal History: Reports: Arthritis Neurological History: Reports: Other (See Below) Other Neuro History: Insomnia Psychiatric History: Reports: Addiction, Anxiety Endocrine/Metabolic History: Reports: Obesity/BMI 30+ Hematologic History: Reports: None Immunologic History: Reports: None Oncologic (Cancer) History: Reports: None Dermatologic History: Reports: None - Infectious Disease History Infectious Disease History: Reports: Chicken Pox - Past Surgical History Head Surgeries/Procedures: Reports: None GI Surgical History: Reports: Bariatric Procedure Endocrine Surgical History: Reports: None Musculoskeletal Surgical History: Reports: Knee Replacement, Other (See Below) Social & Family History - Family History Family Medical History: Noncontributory - Tobacco Use Smoking Status *Q: Never Smoker Second Hand Smoke Exposure: No - Caffeine Use Caffeine Use: Reports: None Caffeine Use Comment: daily - Alcohol Use Days Per Week of Alcohol Use: 0 Number of Drinks Per Day: 1 Total Drinks Per Week: 0 - Recreational Drug Use Recreational Drug Use: Yes Drug Use in Last 12 Months: No Recreational Drug Type: Reports: Oxycodone Recreational Drug Use Frequency: Daily ED ROS GENERAL - Review of Systems Review Of Systems: ROS reveals no pertinent complaints other than HPI. ED EXAM, BEHAVIORAL HEALTH - Physical Exam Exam: See Below (See dictation) COURSE, BEHAVIORAL HEALTH COMP - Course Vital Signs: Last Vital Signs Temp 98.3 F 09/29/17 10:28 Pulse 99 09/29/17 10:28 Resp 18 09/29/17 10:28 BP 148/77 H 09/29/17 10:28 Pulse Ox 98 09/29/17 10:28 Orders, Labs, Meds: Active Orders 24 hr Category Date Time Status EKG Documentation Completion [RC] STAT Care 09/29/17 10:30 Active Laboratory Tests 09/29/17 09/29/17 Range/Units 10:50 10:50 WBC 8.89 (4.0-11.0) K/uL RBC 4.84 (4.50-5.90) M/uL Hgb 14.4 (13.0-17.0) g/dL Hct 41.8 (38.0-50.0) % MCV 86.4 (80.0-98.0) fL MCH 29.8 (27.0-32.0) pg MCHC 34.4 (31.0-37.0) g/dL RDW Std Deviation 41.4 (28.0-62.0) fl RDW Coeff of Brendan 13 (11.0-15.0) % Plt Count 272 (150-400) K/uL MPV 9.00 (7.40-12.00) fL Neut % (Auto) 80.6 H (48.0-80.0) % Lymph % (Auto) 10.6 L (16.0-40.0) % Carter % (Auto) 8.5 (0.0-15.0) % Eos % (Auto) 0.2 (0.0-7.0) % Baso % (Auto) 0.1 (0.0-1.5) % Neut # (Auto) 7.2 H (1.4-5.7) K/uL Lymph # (Auto) 0.9 (0.6-2.4) K/uL Carter # (Auto) 0.8 (0.0-0.8) K/uL Eos # (Auto) 0.0 (0.0-0.7) K/uL Baso # (Auto) 0.0 (0.0-0.1) K/uL Nucleated RBC % 0.0 /100WBC Nucleated RBCs # 0 K/uL Sodium 142 (136-146) mmol/L Potassium 3.1 L (3.5-5.1) mmol/L Chloride 109 (98-110) mmol/L Carbon Dioxide 24 (21-31) mmol/L BUN 9 (6.0-23.0) mg/dL Creatinine 0.9 (0.6-1.5) mg/dL Est Cr Clr Drug Dosing 97.44 mL/min Estimated GFR (MDRD) > 60.0 ml/min Glucose 120 H (60-110) mg/dL Calcium 9.4 (8.8-10.8) mg/dL Total Bilirubin 0.4 (0.1-1.5) mg/dL AST 18 (5-40) IU/L ALT 23 (8-54) IU/L Alkaline Phosphatase 141 (40-150) Troponin I < 0.10 (0.0-0.29) NG/ML Total Protein 7.0 (6.0-8.0) g/dL Albumin 4.3 (3.5-5.0) g/dL Globulin 2.7 (2.0-3.5) g/dL Albumin/Globulin Ratio 1.6 (1.3-2.8) Medications Discontinued Medications Generic Name Dose Route Start Last Admin Trade Name Freq PRN Reason Stop Dose Admin Sodium Chloride 500 mls @ 999 mls/hr 09/29/17 10:45 Normal Saline IV STAT MYA Lorazepam 1 mg 09/29/17 10:41 09/29/17 11:03 Ativan IVPUSH 09/29/17 10:42 Not Given ONETIME ONE Ondansetron HCl 4 mg 09/29/17 10:41 09/29/17 11:03 Zofran IVPUSH 09/29/17 10:42 Not Given ONETIME ONE Ondansetron HCl 4 mg 09/29/17 10:52 09/29/17 10:59 Zofran Odt PO 09/29/17 10:53 4 mg ONETIME ONE Administration Departure - Departure Time of Disposition: 11:22 Disposition: Home, Self-Care 01 Clinical Impression: Opioid abuse - Discharge Information Instructions: Opioid Use Disorder Referrals: PCP,None [Primary Care Provider] - Forms: ED Department Discharge Additional Instructions: My general discharge The following information is given to patients seen in the emergency department who are being discharged to home. This information is to outline your options for follow-up care. We provide all patients seen in our emergency department with a follow-up referral. The need for follow-up, as well as the timing and circumstances, are variable depending upon the specifics of your emergency department visit. If you don't have a primary care physician on staff, we will provide you with a referral. We always advise you to contact your personal physician following an emergency department visit to inform them of the circumstance of the visit and for follow-up with them and/or the need for any referrals to a consulting specialist. The emergency department will also refer you to a specialist when appropriate. This referral assures that you have the opportunity for follow-up care with a specialist. All of these measure are taken in an effort to provide you with optimal care, which includes your follow-up. Under all circumstances we always encourage you to contact your private physician who remains a resource for coordinating your care. When calling for follow-up care, please make the office aware that this follow-up is from your recent emergency room visit. If for any reason you are refused follow-up, please contact the [facility] Emergency Department at and asked to speak to the emergency department charge nurse. [facility] [address] [place] [id number] 1. An expedited appointment has been made for you to see Dr Cheung at 2pm at [facility], tomorrow (09/30/2017). 2. Continue to abstain from Opioids/Narcotics. Three tabs of Ativan have been prescribed, may take 1 tab every 6 hours. May cause drowsiness, so do not take while driving or needing to be functioning outside of the house. Zofran as needed for nausea. 3. Return to the ED as needed and as discussed. - My Orders Last 24 Hours: My Active Orders 09/29/17 10:30 EKG Documentation Completion [RC] STAT - Assessment/Plan Last 24 Hours: My Active Orders 09/29/17 10:30 EKG Documentation Completion [RC] STAT
[2017-09-29] MEDS ORDERED: Ondansetron 4 MG Tab.DIS PO ONE (10:52)
[2017-09-29 11:24] LABS: CHLORIDE,CL 109 mmol/L (98-110); SODIUM,NA 142 mmol/L (136-146)
[2017-09-29 11:56] VITALS: BP 148/87
== END 2017-09-29 11:48 | disposition home or self-care (01) ==
LOC: MW.ED 10:19
DX: F11.20 Opioid dependence, uncomplicated (principal); Z88.8 Allergy status to other drugs, medicaments and biological substances
CPT/HCPCS: 36415; 80053; 84484; 85025; 93005; 99284; A9270

== ENCOUNTER 2020-02-27 10:24 | Emergency (ER) | payer OTHER ==
--- NOTE | 2020-02-27 11:14 | EDM.PDOC ---
ED HPI GENERAL MEDICAL PROBLEM - General Chief Complaint: Skin Complaint Stated Complaint: ABSCESS Time Seen by Provider: 02/27/20 10:32 - History of Present Illness INITIAL COMMENTS - FREE TEXT/NARRATIVE: History of present illness: 45-year-old male presenting with rectal/anal pain for the last week. He has been doing sitz bath, stool softeners, Preparation H but the pain has not improved. He went to the clinic today who were not certain if it was an abscess or thrombosed hemorrhoid, and they called surgery and sent him to the emergency department. Review of systems: As per history of present illness and below otherwise all systems reviewed and negative. Past medical history: As per history of present illness and as reviewed below otherwise noncontributory. Surgical history: As per history of present illness and as reviewed below otherwise noncontributory. Social history: No tobacco No reported history of drug or alcohol abuse. Family history: As per history of present illness and as reviewed below otherwise noncontributory. Physical exam: GEN: no acute distress, well appearing HEENT: Atraumatic, normocephalic, mucous membranes moist Neck: supple Lungs: No respiratory distress. Heart: RRR Abdomen: Soft, nondistended, nontender. Rectal: The patient has what appears to be a thrombosed external hemorrhoid that is tender to palpation. There is no erythema. This does not appear to be consistent with abscess. Extremities: Atraumatic. Neurovascularly intact. Neuro: Awake, alert, oriented. Neuro Exam nonfocal. Skin: warm, dry, no lesions Diagnostics: [] Therapeutics: [] MDM: Impression: [] Plan: [] Definitive disposition and diagnosis as appropriate pending reevaluation and review of above. - Related Data Allergies Allergy/AdvReac Type Severity Reaction Status Date / Time gabapentin Allergy memory loss Verified 09/29/17 10:31 tizanidine Allergy Drowsiness Verified 09/29/17 10:31 Home Meds: Home Meds Pantoprazole Sodium [Protonix] 10 mg PO BID 09/10/17 [History] Sucralfate [Carafate] 1 tab PO QID 09/29/17 [History] Hydrocodone/Acetaminophen [Concord 5-325 Tablet] 1 each PO Q6HR PRN #15 tablet 02/27/20 [Rx] Ibuprofen 600 mg PO Q8H #30 tablet 02/27/20 [Rx] Lidocaine 5% 1 applic TOP Q2HR PRN #1 tube 02/27/20 [Rx] Past Medical History HEENT History: Reports: Impaired Vision Other HEENT History: wears glasses Cardiovascular History: Reports: None Respiratory History: Reports: None Gastrointestinal History: Reports: GERD, PUD Genitourinary History: Reports: None Musculoskeletal History: Reports: Arthritis Neurological History: Reports: Other (See Below) Other Neuro History: Insomnia Psychiatric History: Reports: Addiction, Anxiety Endocrine/Metabolic History: Reports: Obesity/BMI 30+ Hematologic History: Reports: None Immunologic History: Reports: None Oncologic (Cancer) History: Reports: None Dermatologic History: Reports: None - Infectious Disease History Infectious Disease History: Reports: Chicken Pox - Past Surgical History Head Surgeries/Procedures: Reports: None GI Surgical History: Reports: Bariatric Procedure Musculoskeletal Surgical History: Reports: Knee Replacement, Other (See Below) Social & Family History - Family History Family Medical History: Noncontributory - Tobacco Use Smoking Status *Q: Never Smoker Second Hand Smoke Exposure: No - Caffeine Use Caffeine Use: Reports: None Caffeine Use Comment: daily - Recreational Drug Use Recreational Drug Use: No ED ROS GENERAL - Review of Systems Review Of Systems: See Below (See HPI) ED EXAM, SKIN/RASH Exam: See Below (See HPI) Course - Vital Signs Last Recorded V/S: Last Vital Signs Temp 98.2 F 02/27/20 10:40 Pulse 55 L 02/27/20 12:19 Resp 16 02/27/20 12:19 BP 143/75 H 02/27/20 12:19 Pulse Ox 97 02/27/20 12:19 - Re-Assessments/Exams Free Text/Narrative Re-Assessment/Exam: 02/27/20 11:58 Dr. Roa called back, she will see the patient now. 02/27/20 12:19 Dr. Roa came to evaluate the patient. After her examination, she reports it is a thrombosed internal hemorrhoid that has herniated outward. It is already healing and not infected. She recommends no antibiotics at this time. Outpatient follow-up with her in 1 week. Topical lidocaine 5% ointment every 2 hours as needed for pain, Concord every 6-8 hours as needed, scheduled ibuprofen. This was discussed with the patient who is feeling well and is in agreement with this plan. Departure - Departure Time of Disposition: 12:20 Disposition: Home, Self-Care 01 Clinical Impression: Internal thrombosed hemorrhoids - Discharge Information Prescriptions: Ibuprofen 600 mg PO Q8H #30 tablet Lidocaine 5% 1 applic TOP Q2HR PRN #1 tube PRN Reason: Pain Hydrocodone/Acetaminophen [Concord 5-325 Tablet] 1 each PO Q6HR PRN #15 tablet PRN Reason: Pain (Severe 7-10) Instructions: Hemorrhoids, [id number] Referrals: Devon Pratt MD [Primary Care Provider] - Nelida Roa MD [Physician] - 1 Week Forms: ED Department Discharge Additional Instructions: The following information is given to patients seen in the emergency department who are being discharged to home. This information is to outline your options for follow-up care. We provide all patients seen in our emergency department with a follow-up referral. The need for follow-up, as well as the timing and circumstances, are variable d epending upon the specifics of your emergency department visit. If you don't have a primary care physician on staff, we will provide you with a referral. We always advise you to contact your personal physician following an emergency department visit to inform them of the circumstance of the visit and for follow-up with them and/or the need for any referrals to a consulting specialist. The emergency department will also refer you to a specialist when appropriate. This referral assures that you have the opportunity for follow-up care with a specialist. All of these measure are taken in an effort to provide you with optimal care, which includes your follow-up. Under all circumstances we always encourage you to contact your private physician who remains a resource for coordinating your care. When calling for follow-up care, please make the office aware that this follow-up is from your recent emergency room visit. If for any reason you are refused follow-up, please contact the [facility] Emergency Department at and asked to speak to the emergency department charge nurse. Please follow-up with Dr. Roa in 1 week. Her recommendations are Topical lidocaine 5% ointment every 2 hours as needed for pain, Concord every 6-8 hours as needed, scheduled ibuprofen, 600 mg every 8 hours on a set schedule. Continue sits baths. Sepsis Event Note (ED) - Evaluation Sepsis Screening Result: No Definite Risk - Focused Exam Vital Signs: Vital Signs Temp Pulse Resp BP Pulse Ox 02/27/20 12:19 55 L 16 143/75 H 97 02/27/20 10:40 98.2 F 55 L 18 121/77 98
[2020-02-27 12:54] VITALS: BP 144/82; PULSE 64
--- NOTE | 2020-02-27 14:35 | PCM.HP.2 ---
H&P History of Present Illness - General Date of Service: 02/27/20 Source of Information: Patient History Limitations: Reports: No Limitations - History of Present Illness Initial Comments - Free Text/Narative: Patient is a 45 year old male who presents with perianal pain. He developed this acutely 1.5 weeks ago. It was painful and tender to touch. He denied fevers, nausea and vomiting, and incontinence. He did have some intermittent BRBPR. It was painful to have bowel movements intermittently. He has been performing sitz bath multiple times a day, increased fiber, and prep H cream with no relief. He saw his PCP today. He was sent to the ER with concerns for a possible perianal abscess. His vitals were stable. Right Buttock Pain Score (Numeric/FACES): 5 - Related Data Allergies/Adverse Reactions: Allergies Allergy/AdvReac Type Severity Reaction Status Date / Time gabapentin Allergy memory loss Verified 09/29/17 10:31 tizanidine Allergy Drowsiness Verified 09/29/17 10:31 Home Medications: Home Meds Pantoprazole Sodium [Protonix] 10 mg PO BID 09/10/17 [History] Sucralfate [Carafate] 1 tab PO QID 09/29/17 [History] Hydrocodone/Acetaminophen [[place] 5-325 Tablet] 1 each PO Q6HR PRN #15 tablet 02/27/20 [Rx] Ibuprofen 600 mg PO Q8H #30 tablet 02/27/20 [Rx] Lidocaine 5% 1 applic TOP Q2HR PRN #1 tube 02/27/20 [Rx] Past Medical History HEENT History: Reports: Impaired Vision Other HEENT History: wears glasses Cardiovascular History: Reports: None Respiratory History: Reports: None Gastrointestinal History: Reports: GERD, PUD Genitourinary History: Reports: None Musculoskeletal History: Reports: Arthritis Neurological History: Reports: Other (See Below) Other Neuro History: Insomnia Psychiatric History: Reports: Addiction, Anxiety Endocrine/Metabolic History: Reports: Obesity/BMI 30+ Hematologic History: Reports: None Immunologic History: Reports: None Oncologic (Cancer) History: Reports: None Dermatologic History: Reports: None - Infectious Disease History Infectious Disease History: Reports: Chicken Pox - Past Surgical History Head Surgeries/Procedures: Reports: None GI Surgical History: Reports: Bariatric Procedure Musculoskeletal Surgical History: Reports: Knee Replacement, Other (See Below) Social & Family History - Family History Family Medical History: Noncontributory - Tobacco Use Smoking Status *Q: Never Smoker Second Hand Smoke Exposure: No - Caffeine Use Caffeine Use: Reports: None Caffeine Use Comment: daily - Recreational Drug Use Recreational Drug Use: No H&P Review of Systems - Review of Systems: Review Of Systems: Comprehensive ROS is negative, except as noted in HPI. Exam - Exam Exam: See Below - Vital Signs Vital Signs: Last Vital Signs Temp 36.8 C 02/27/20 10:40 Pulse 64 02/27/20 12:54 Resp 13 02/27/20 12:54 BP 144/82 H 02/27/20 12:54 Pulse Ox 97 02/27/20 12:54 Weight: 108.862 kg - Exam Quality Assessment: Supplemental Oxygen General: Alert, Oriented HEENT: Conjunctiva Clear, Mucosa Moist & [place], Posterior Pharynx Clear Lungs: Normal Respiratory Effort Cardiovascular: Regular Rate GI/Abdominal Exam: Soft Rectal (Males) Exam: Other (Large left lateral prolapsed internal hemorrhoid with central ulceration. The area is tender and edematous but not acutely thrombosed. ) Sepsis Event Note - Evaluation Sepsis Screening Result: No Definite Risk - Focused Exam Vital Signs: Vital Signs Temp Pulse Resp BP Pulse Ox 02/27/20 12:54 64 13 144/82 H 97 02/27/20 12:19 55 L 16 143/75 H 97 02/27/20 10:40 36.8 C 55 L 18 121/77 98 Date Exam was Performed: 02/27/20 Time Exam was Performed: 14:28 - Problem List (1) Internal thrombosed hemorrhoids SNOMED Code(s): 16071370 ICD Code: K64.5 - PERIANAL VENOUS THROMBOSIS Status: Acute Problem List Initiated/Reviewed/Updated: Yes Assessment/Plan Comment:: The patient and I discussed the pathology of hemorrhoidal disease. He has a left lateral internal hemorrhoid that thrombosed. It appears to be resolving and I do not think he needs to have surgery on it at this time. Continue with conse rvative measures. Encouraged him to use scheduled NSAIDs for pain control and will prescribe a po narcotic for severe pain. Lidocaine 5% ointment for local pain control. Will follow up in clinic in 1 week or sooner should issues arise.
== END 2020-02-27 12:55 | disposition home or self-care (01) ==
LOC: MW.ED 10:24
DX: K64.5 Perianal venous thrombosis (principal); K21.9 Gastro-esophageal reflux disease without esophagitis; E66.9 Obesity, unspecified; Z68.29 Body mass index [BMI] 29.0-29.9, adult; Z88.8 Allergy status to other drugs, medicaments and biological substances; Z79.899 Other long term (current) drug therapy
CPT/HCPCS: 99283

== ENCOUNTER 2020-03-11 07:49 | Day surgery (SDC) | payer OTHER ==
[~2020-03-11 07:49] MED LIST: Dexamethasone 4 MG/ML 5 ML MDV ONE; Lactated Ringers 1,000 ML IV SCH; Midazolam 1 MG/ML 2 ML SDV ONE; Ondansetron 4 MG/2 ML SDV ONE; Propofol 200 MG/20 ML SDV ONE; Sodium Chloride 0.9% 20 ML ONE; cefOXitin 1 GM Vial ONE; cefOXitin 2 GM in Premix Bag 1 BAG IV ONE; fentaNYL 250 MCG/5 ML SDV ONE
[2020-03-11] MEDS ORDERED: Bupivacaine 0.5% 30 ML SDV ONE (07:59)
[2020-03-11] MEDS ORDERED: Lidocaine 2% Jelly 30 ML Tube ONE (07:59)
[2020-03-11] MEDS ORDERED: Propofol 200 MG/20 ML SDV ONE ×2 (08:26→09:29)
--- NOTE | 2020-03-11 08:35 | PCM.PREANE ---
Preanesthetic Assessment - Anesthesia/Transfusion/Family Hx Anesthesia History: Prior Anesthesia Without Reaction Other Type of Anesthesia Reaction Comment: Not care sickness...but "sea sick once" Family History of Anesthesia Reaction: No Transfusion History: Prior Transfusion Without Reaction - Review of Systems General: No Symptoms Pulmonary: No Symptoms Cardiovascular: No Symptoms Gastrointestinal: No Symptoms Neurological: No Symptoms Other: Reports: None - Physical Assessment Vital Signs: Last Vital Signs Temp 208.4 F H 03/11/20 08:00 Pulse 58 L 03/11/20 08:00 Resp 16 03/11/20 08:00 BP 125/75 03/11/20 08:00 Pulse Ox 98 03/11/20 08:00 Height: 6 ft 4 in Weight: 128.82 kg ASA Class: 2 Mental Status: Alert & Oriented x3 Airway Class: Mallampati = 2 Dentition: Reports: Normal Dentition ROM/Head Extension: Full Lungs: Clear to Auscultation, Normal Respiratory Effort Cardiovascular: Regular Rate, Regular Rhythm - Allergies Allergies/Adverse Reactions: Allergies Allergy/AdvReac Type Severity Reaction Status Date / Time gabapentin Allergy memory loss Verified 03/07/20 09:58 tizanidine Allergy Drowsiness Verified 03/07/20 09:58 - Blood Blood Available: No - Anesthesia Plan Pre-Op Medication Ordered: None - Acknowledgements Anesthesia Type Planned: General Anesthesia Pt an Appropriate Candidate for the Planned Anesthesia: Yes Alternatives and Risks of Anesthesia Discussed w Pt/Guardian: Yes Pt/Guardian Understands and Agrees with Anesthesia Plan: Yes PreAnesthesia Questionnaire HEENT History: Reports: Other (See Below) Other HEENT History: wears glasses Cardiovascular History: Reports: None Respiratory History: Reports: None Gastrointestinal History: Reports: GERD, Hemorrhoids, PUD Genitourinary History: Reports: None Musculoskeletal History: Reports: Fracture, Other (See Below) Other Musculoskeletal History: currently has left ACL tear, hx of fx left ankle, legs and arms Neurological History: Reports: Other (See Below) Other Neuro History: Insomnia Psychiatric History: Reports: Addiction, Anxiety Endocrine/Metabolic History: Reports: Obesity/BMI 30+ Hematologic History: Reports: Blood Transfusion(s) Immunologic History: Reports: None Oncologic (Cancer) History: Reports: None Dermatologic History: Reports: None - Infectious Disease History Infectious Disease History: Reports: Chicken Pox - Past Surgical History Head Surgeries/Procedures: Reports: None GI Surgical History: Reports: Bariatric Procedure, Other (See Below) Other GI Surgeries/Procedures: Abdominoplasty Musculoskeletal Surgical History: Reports: Arthroscopic Knee, Knee Replacement, ORIF Other Musculoskeletal Surgeries/Procedures:: right TKA, ORIF left ankle (has hardware) and bilateral knee arthroscopies - SUBSTANCE USE Smoking Status *Q: Never Smoker Recreational Drug Use History: No - HOME MEDS Home Medications: Home Meds Pantoprazole Sodium [Protonix] 40 mg PO BID 09/10/17 [History] Sucralfate [Carafate] 1 gm PO BEDTIME 09/29/17 [History] Ibuprofen 600 mg PO Q8H #30 tablet 02/27/20 [Rx] Lidocaine 5% 1 applic TOP Q2HR PRN #1 tube 02/27/20 [Rx] Zolpidem Tartrate [Zolpidem Tartrate ER] 12.5 mg PO BEDTIME 03/07/20 [History] - CURRENT (IN HOUSE) MEDS Current Meds: Current Medications Lactated Ringer's (Ringers, Lactated) 1,000 mls @ 125 mls/hr IV ASDIRECTED MYA Discontinued Medications Bupivacaine HCl (Marcaine 0.5%) Confirm Administered Dose 30 ml .ROUTE .STK-MED ONE Stop: 03/11/20 08:00 Cefoxitin Sodium (Mefoxin) Confirm Administered Dose 2 gm .ROUTE .STK-MED ONE Stop: 03/11/20 07:17 Dexamethasone (Dexamethasone) Confirm Administered Dose 20 mg .ROUTE .STK-MED ONE Stop: 03/11/20 07:15 Fentanyl (Sublimaze) Confirm Administered Dose 250 mcg .ROUTE .STK-MED ONE Stop: 03/11/20 07:14 Cefoxitin Sodium 2 gm/ Premix 50 mls @ 100 mls/hr IV ONETIME ONE Stop: 03/10/20 11:32 Sodium Chloride (Normal Saline) Confirm Administered Dose 20 mls @ as directed .ROUTE .STK-MED ONE Stop: 03/11/20 07:17 Lidocaine HCl (Xylocaine-Mpf 1%) Confirm Administered Dose 5 ml .ROUTE .STK-MED ONE Stop: 03/11/20 07:15 Lidocaine HCl (Xylocaine 2% Jelly) Confirm Administered Dose 30 ml .ROUTE .STK- MED ONE Stop: 03/11/20 08:00 Midazolam HCl (Versed 1 Mg/Ml) Confirm Administered Dose 2 mg .ROUTE .STK-MED ONE Stop: 03/11/20 07:14 Ondansetron HCl (Zofran) Confirm Administered Dose 4 mg .ROUTE .STK-MED ONE Stop: 03/11/20 07:15 Propofol (Diprivan 20 Ml) Confirm Administered Dose 200 mg .ROUTE .STK-MED ONE Stop: 03/11/20 07:14 Propofol (Diprivan 20 Ml) Confirm Administered Dose 200 mg .ROUTE .STK-MED ONE Stop: 03/11/20 08:27
[2020-03-11] MEDS ORDERED: Glycopyrrolate 0.2 MG/ML SDV ONE ×2 (08:58→09:07)
--- NOTE | 2020-03-11 09:54 | PCM.OPNOTE ---
- General Post-Op/Procedure Note Date of Surgery/Procedure: 03/11/20 Operative Procedure(s): Single column hemorrhoidectomy Findings: Prolapsed and thrombosed left lateral hemorrhoidal column Pre Op Diagnosis: Prolapsed and thrombosed internal hemorrhoid Post-Op Diagnosis: same Anesthesia Technique: Local, MAC Primary Surgeon: Nelida Roa Fluid Replacement, Intraop: 800 EBL in mLs: 5 Condition: Good
--- NOTE | 2020-03-11 10:06 | PCM.POSTAN ---
POST ANESTHESIA ASSESSMENT - MENTAL STATUS Mental Status: Alert, Oriented - VITAL SIGNS Vital Signs: Last Vital Signs Temp 36.3 C 03/11/20 09:34 Pulse 74 03/11/20 10:01 Resp 19 03/11/20 10:01 BP 141/89 H 03/11/20 10:01 Pulse Ox 96 03/11/20 10:01 - RESPIRATORY Respiratory Status: Respiratory Rate WNL, Airway Patent, O2 Saturation Stable - CARDIOVASCULAR CV Status: Pulse Rate WNL, Blood Pressure Stable - GASTROINTESTINAL GI Status: No Symptoms - PAIN Pain Score: 0 - POST OP HYDRATION Hydration Status: Adequate & Stable
--- NOTE | 2020-03-11 10:30 | PCM48HPAN ---
Post Anesthesia Note - EVALUATION WITHIN 48HRS OF ANESTHETIC Vital Signs in Normal Range: Yes Patient Participated in Evaluation: Yes Respiratory Function Stable: Yes Airway Patent: Yes Cardiovascular Function Stable: Yes Hydration Status Stable: Yes Pain Control Satisfactory: Yes Nausea and Vomiting Control Satisfactory: Yes Mental Status Recovered: Yes Vital Signs: Last Vital Signs Temp 207.5 F H 03/11/20 10:10 Pulse 66 03/11/20 10:10 Resp 16 03/11/20 10:10 BP 128/75 03/11/20 10:10 Pulse Ox 97 03/11/20 10:10
[2020-03-11 14:16] VITALS: BP 136/85; PULSE 75
--- NOTE | 2020-03-11 15:34 | OR ---
SURGEON: NELIDA ROA MD DATE OF PROCEDURE: 03/11/2020 PREOPERATIVE DIAGNOSIS: Thrombosed left lateral internal hemorrhoid. POSTOPERATIVE DIAGNOSIS: Thrombosed left lateral internal hemorrhoid. PROCEDURE PERFORMED: Single column hemorrhoidectomy. PRIMARY SURGEON: Nelida Roa MD ANESTHESIA: MAC, local. FLUIDS: 800 mL of crystalloid. ESTIMATED BLOOD LOSS: 5 mL. FINDINGS: Thrombosed and prolapsed internal left lateral hemorrhoid column. COMPLICATIONS: None. INDICATIONS: The patient is a 45-year-old male who presented to the emergency room 2 weeks ago with perianal pain. On examination in the ER, the patient was found to have a thrombosed internal hemorrhoid. The hemorrhoid tissue appeared to be healing, so at that time, the patient was given conservative measures and told to follow up in clinic. The patient followed up 1 week after this and the pain had gotten worse. On examination, the thrombosed hemorrhoid appeared to have an enlarging ulcer overlying it. The decision was made to excise this column of hemorrhoid tissue. I explained the procedure, expected perioperative course including ongoing conservative cares afterwards and pain management as well as the risks including bleeding, infection, or damage to surrounding structures including alteration of continence with sphincter damage. The patient verbalized understanding and wishes to proceed. PROCEDURE IN DETAIL: The patient was brought into the OR and placed in a left lateral decubitus position. A time-out was completed verifying the patient's name, age, date of , allergies, and procedure to be performed. General LMA anesthesia was induced. The patient was secured to the table and all bony prominences were appropriately cushioned. The buttocks and anoderm were then prepped and draped in usual standard fashion. A digital rectal exam was performed. Again, the patient was noted to have an enlarged and thrombosed left lateral hemorrhoid with an overlying ulcer. A bivalve proctoscope was inserted in the anal canal. The remainder of the anal canal appeared normal. I then grasped the thrombosed hemorrhoid with a Stefani clamp and elevated it. Using needle-tip cautery, I then excised the thrombosed hemorrhoidal tissue taking care to use a minimal amount of electrocautery as I could. The excised tissue was then sent to pathology, labeled as hemorrhoid. The clot underneath this tissue was suctioned out. The area was irrigated. I then closed the mucosal defect with a locked running 2-0 chromic suture. This was transitioned to a running simple stitch on the anoderm. It was then simply stitched back upon itself and tied within the anal canal. The suture line was hemostatic at the end. The bivalve proctoscope was removed. I then circumferentially anesthetized the anoderm with 0.5% Marcaine plain. 4 x 4, fluffs, and mesh underwear were then placed over the top of this. The patient was awoken and taken to PACU in stable condition. All counts were complete and correct at the end of the case. BARBER / ARMIDA /[id number]
== END 2020-03-11 10:45 | disposition home or self-care (01) ==
LOC: MW.SDS 07:49
PROVIDERS: ATTEND Surgery
DX: K64.5 Perianal venous thrombosis (principal); K21.9 Gastro-esophageal reflux disease without esophagitis; F41.9 Anxiety disorder, unspecified; E66.9 Obesity, unspecified; G47.00 Insomnia, unspecified; Z79.899 Other long term (current) drug therapy; Z88.8 Allergy status to other drugs, medicaments and biological substances; Z68.34 Body mass index [BMI] 34.0-34.9, adult
CPT/HCPCS: 46255; 88304; J0694; J2001; J2250; J2704; J3010; J3490; J7120; 00902; J1100; J2405

== ENCOUNTER 2020-04-17 07:13 | Day surgery (SDC) | payer OTHER ==
[~2020-04-17 07:13] MED LIST changes: -Dexamethasone 4 MG/ML 5 ML MDV ONE; -Midazolam 1 MG/ML 2 ML SDV ONE; -Ondansetron 4 MG/2 ML SDV ONE; -Propofol 200 MG/20 ML SDV ONE; +Sodium Chloride 0.9% 10 ML SDV IV PRN; +Sodium Chloride 0.9% 10 ML Syringe FLUSH PRN; +Sodium Chloride 0.9% 2.5 ML Syringe FLUSH PRN; -Sodium Chloride 0.9% 20 ML ONE; -cefOXitin 1 GM Vial ONE; -cefOXitin 2 GM in Premix Bag 1 BAG IV ONE; -fentaNYL 250 MCG/5 ML SDV ONE
[2020-04-17] MEDS ORDERED: Lidocaine 2% 5 ML SDV ONE (07:16)
[2020-04-17] MEDS ORDERED: fentaNYL 100 MCG/2 ML SDV ONE (07:17)
[2020-04-17] MEDS ORDERED: Midazolam 1 MG/ML 2 ML SDV ONE (07:17)
[2020-04-17] MEDS ORDERED: Propofol 200 MG/20 ML SDV ONE (07:17)
--- NOTE | 2020-04-17 08:04 | PCM.PREANE ---
Preanesthetic Assessment - Anesthesia/Transfusion/Family Hx Anesthesia History: Prior Anesthesia Without Reaction Other Type of Anesthesia Reaction Comment: Not care sickness...but "sea sick once" Family History of Anesthesia Reaction: No Transfusion History: Prior Transfusion Without Reaction Intubation History: Unknown - Review of Systems General: No Symptoms Pulmonary: No Symptoms Cardiovascular: No Symptoms Gastrointestinal: Abdominal Pain (epigastric) Neurological: No Symptoms Other: Reports: None - Physical Assessment Height: 6 ft 3 in Weight: 122.47 kg ASA Class: 2 Mental Status: Alert & Oriented x3 Airway Class: Mallampati = 2 Dentition: Reports: Normal Dentition Thyro-Mental Finger Breadths: 3 Mouth Opening Finger Breadths: 3 ROM/Head Extension: Full Lungs: Clear to Auscultation, Normal Respiratory Effort Cardiovascular: Regular Rate, Regular Rhythm - Allergies Allergies/Adverse Reactions: Allergies Allergy/AdvReac Type Severity Reaction Status Date / Time gabapentin Allergy memory loss Verified 04/15/20 13:04 tizanidine Allergy Drowsiness Verified 04/15/20 13:04 - Blood Blood Available: No - Anesthesia Plan Pre-Op Medication Ordered: None - Acknowledgements Anesthesia Type Planned: MAC Pt an Appropriate Candidate for the Planned Anesthesia: Yes Alternatives and Risks of Anesthesia Discussed w Pt/Guardian: Yes Pt/Guardian Understands and Agrees with Anesthesia Plan: Yes PreAnesthesia Questionnaire HEENT History: Reports: Other (See Below) Other HEENT History: wears glasses Cardiovascular History: Reports: None Respiratory History: Reports: None Gastrointestinal History: Reports: GERD, Hemorrhoids, PUD (bleeding ulcer few years ago), Other (See Below) (h/o pancreatitis 2 years ago) Genitourinary History: Reports: None Musculoskeletal History: Reports: Fracture, Other (See Below) Other Musculoskeletal History: currently has left ACL tear, hx of fx left ankle, legs and arms Neurological History: Reports: Other (See Below) Other Neuro History: Insomnia Psychiatric History: Reports: Addiction (h/o opioid abuse, drug seeking behaviour), Anxiety Endocrine/Metabolic History: Reports: Obesity/BMI 30+ (BMI 33.7) Hematologic History: Reports: Blood Transfusion(s) Immunologic History: Reports: None Oncologic (Cancer) History: Reports: None Dermatologic History: Reports: None - Infectious Disease History Infectious Disease History: Reports: Chicken Pox - Past Surgical History Head Surgeries/Procedures: Reports: None GI Surgical History: Reports: Bariatric Procedure (Justin-en-Y in 2012), Colonoscopy, EGD, Other (See Below) Other GI Surgeries/Procedures: Abdominoplasty, Hemorrhoidectomy Endocrine Surgical History: Reports: None Other Neurological Surgeries/Procedures: 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 Musculoskeletal Surgical History: Reports: Arthroscopic Knee, Knee Replacement, ORIF Other Musculoskeletal Surgeries/Procedures:: right TKA '12, ORIF left ankle (has hardware) and bilateral knee arthroscopies - right x3 , left x1 - SUBSTANCE USE Smoking Status *Q: Never Smoker Recreational Drug Use History: No - HOME MEDS Home Medications: Home Meds Pantoprazole Sodium [Protonix] 40 mg PO BID 09/10/17 [History] Sucralfate [Carafate] 1 gm PO BEDTIME 09/29/17 [History] Ibuprofen 600 mg PO Q8H #30 tablet 02/27/20 [Rx] Zolpidem Tartrate [Zolpidem Tartrate ER] 12.5 mg PO BEDTIME 03/07/20 [History] - CURRENT (IN HOUSE) MEDS Current Meds: Current Medications Lactated Ringer's (Ringers, Lactated) 1,000 mls @ 125 mls/hr IV ASDIRECTED MYA Sodium Chloride (Normal Saline) 10 ml IV ASDIRECTED PRN PRN Reason: IV Use Sodium Chloride (Saline Flush) 10 ml FLUSH ASDIRECTED PRN PRN Reason: Keep Vein Open Sodium Chloride (Saline Flush) 2.5 ml FLUSH ASDIRECTED PRN PRN Reason: Keep Vein Open Discontinued Medications Fentanyl (Sublimaze) Confirm Administered Dose 100 mcg .ROUTE .STK-MED ONE Stop: 04/17/20 07:18 Lidocaine (Xylocaine-Mpf 2%) Confirm Administered Dose 5 ml .ROUTE .STK-MED ONE Stop: 04/17/20 07:17 Midazolam HCl (Versed 1 Mg/Ml) Confirm Administered Dose 2 mg .ROUTE .STK-MED ONE Stop: 04/17/20 07:18 Propofol (Diprivan 20 Ml) Confirm Administered Dose 400 mg .ROUTE .STK-MED ONE Stop: 04/17/20 07:18
[2020-04-17] MEDS ORDERED: Glycopyrrolate 0.2 MG/ML SDV ONE ×3 (08:59→09:05)
--- NOTE | 2020-04-17 09:18 | PCM.OPNOTE ---
- General Post-Op/Procedure Note Date of Surgery/Procedure: 04/17/20 Operative Procedure(s): Diagnostic EGD with biopsy Findings: Small superficial GJ anastomotic ulcer Pre Op Diagnosis: Epigastric abdominal pain, vomiting Post-Op Diagnosis: GJ anastamotic ulcer Anesthesia Technique: RADHA Primary Surgeon: Nelida Roa Condition: Good
--- NOTE | 2020-04-17 09:41 | PCM.POSTAN ---
POST ANESTHESIA ASSESSMENT - MENTAL STATUS Mental Status: Alert, Oriented - VITAL SIGNS Vital Signs: Last Vital Signs Temp 36.7 C 04/17/20 07:45 Pulse 91 04/17/20 09:34 Resp 17 04/17/20 09:34 BP 129/80 04/17/20 09:34 Pulse Ox 94 L 04/17/20 09:34 - RESPIRATORY Respiratory Status: Respiratory Rate WNL, Airway Patent, O2 Saturation Stable - CARDIOVASCULAR CV Status: Pulse Rate WNL, Blood Pressure Stable - GASTROINTESTINAL GI Status: No Symptoms - PAIN Pain Score: 0 - POST OP HYDRATION Hydration Status: Adequate & Stable - OBSERVATIONS Free Text/Narrative:: No anesthesia problems
--- NOTE | 2020-04-17 09:51 | PCM48HPAN ---
Post Anesthesia Note - EVALUATION WITHIN 48HRS OF ANESTHETIC Vital Signs in Normal Range: Yes Patient Participated in Evaluation: Yes Respiratory Function Stable: Yes Airway Patent: Yes Cardiovascular Function Stable: Yes Hydration Status Stable: Yes Pain Control Satisfactory: Yes Nausea and Vomiting Control Satisfactory: Yes Mental Status Recovered: Yes Vital Signs: Last Vital Signs Temp 36.7 C 04/17/20 07:45 Pulse 91 04/17/20 09:34 Resp 17 04/17/20 09:34 BP 129/80 04/17/20 09:34 Pulse Ox 94 L 04/17/20 09:34 - COMMENTS/OBSERVATIONS Free Text/Narrative:: No anesthesia problems
[2020-04-17 11:46] VITALS: BP 128/74; PULSE 88
--- NOTE | 2020-04-17 13:22 | OR ---
SURGEON: NELIDA ROA MD DATE OF PROCEDURE: 04/17/2020 PREOPERATIVE DIAGNOSES: Epigastric abdominal pain, nausea and vomiting. POSTOPERATIVE DIAGNOSIS: Marginal ulcer. PROCEDURE PERFORMED: Diagnostic esophagogastroduodenoscopy with biopsy. PRIMARY SURGEON: Nelida Roa MD ANESTHESIA: MAC. INSTRUMENT USED: Olympus endoscope. EXTENT OF EXAM: 60 cm down the Justin limb. LIMITATIONS: None. INDICATIONS: The patient is a 45-year-old male with a history of a Justin-en-Y gastric bypass and a previous marginal ulcer who presents with epigastric abdominal pain. He is also experiencing postprandial nausea and vomiting. Esophagram showed mild reflux, but no other findings. CT scan of the abdomen and pelvis showed a questionable gallstone in the gallbladder. Ultrasound was normal. The decision was made to proceed with diagnostic EGD with biopsies. The patient and I discussed the procedure, expected perioperative course, and the risks including bleeding or perforation. He verbalized understanding and wishes to proceed. PROCEDURE IN DETAIL: The patient was brought into the endoscopy suite and placed in a beach chair position. A time-out was completed verifying the patient's name, age, date of , allergies, and procedure to be performed. Monitored anesthesia care was induced and a bite block was placed in the patient's mouth. Continuous oxygen was provided via nasal cannula throughout the procedure. After adequate sedation was achieved, a well-lubricated endoscope was placed in the patient's mouth and advanced under direct visualization into the gastric pouch and down into the Justin limb of his intestine. I was able to reach 60 cm safely and without difficulty. A photograph of this was taken. The scope was then fully withdrawn while examining the mucosa of the upper GI tract. At the GJ junction, the patient was noted to have a small superficial ulcer. This was right next to the staple line. It appeared to be healing. There was no evidence of bleeding. A photograph of this was taken. A biopsy was taken close to this ulcer and sent to pathology, labeled as GJ anastomosis. The gastric pouch appeared to be of an appropriate size. The gastric mucosa appeared healthy with no evidence of inflammation or ulceration. A photograph of this was taken and a biopsy was taken in the gastric pouch. The scope was then brought into the distal esophagus and a photograph was taken of the Z-line. This appeared normal. The esophageal mucosa all appeared healthy and there was no evidence of esophagitis. A biopsy was taken 1 cm above the Z-line and sent to pathology, labeled as esophageal biopsy. The scope was then removed and the procedure was terminated. The patient tolerated the procedure well and was taken to the PACU in stable condition. ENDOSCOPIC DIAGNOSIS: Marginal ulcer. RECOMMENDATIONS: We will have the patient continue pantoprazole b.i.d., and we will switch him to sucralfate q.i.d. The patient and I will review his biopsy results in 1 to 2 weeks and determine the next steps in treatment. BARBER HUFFMAN /[id number]
== END 2020-04-17 10:30 | disposition home or self-care (01) ==
LOC: MW.SDS 07:13
PROVIDERS: ATTEND Surgery
DX: K29.50 Unspecified chronic gastritis without bleeding (principal); K21.0 Gastro-esophageal reflux disease with esophagitis; K25.9 Gastric ulcer, unspecified as acute or chronic, without hemorrhage or perforation; G47.00 Insomnia, unspecified; E66.9 Obesity, unspecified; K42.9 Umbilical hernia without obstruction or gangrene; K80.20 Calculus of gallbladder without cholecystitis without obstruction; Z87.11 Personal history of peptic ulcer disease; Z88.8 Allergy status to other drugs, medicaments and biological substances; Z79.899 Other long term (current) drug therapy; Z68.33 Body mass index [BMI] 33.0-33.9, adult; Z98.84 Bariatric surgery status
CPT/HCPCS: 43239; J2001; J2250; J2704; J3010; J3490; J7120; 00731